=== PATIENT | male | born 1945 | race Caucasian/White ===

== ENCOUNTER 2020-10-28 12:19 | Outpatient (REF) | payer MEDICARE, OTHER, SELFPAY ==
[2020-10-28 15:58] LABS: Influenza A PCR NEGATIVE (Negative); Influenza B PCR NEGATIVE (Negative); Resp Syncy Virus RNA Qual PCR NEGATIVE (Negative); SARS COV2 PCR INHOUSE NEGATIVE (Negative)
== END 2020-10-28 12:20 | disposition home or self-care (01) ==
LOC: HO.LAB 12:19
PROVIDERS: Visit Provider Nurse Practitioner Family
DX: R09.81 Nasal congestion (principal); Z20.822 Contact with and (suspected) exposure to COVID-19
CPT/HCPCS: 0241U; 36415

== ENCOUNTER 2021-01-29 06:33 | Emergency (ER) | payer MEDICARE, OTHER, SELFPAY ==
--- NOTE | ~2021-01-29 | CT_ITS ---
EXAMINATION: CT PELVIS WITH CONTRAST CLINICAL INFORMATION: Evaluate for abscess COMPARISON: None TECHNIQUE: Helical scanning was performed with submillimeter collimation through the pelvis with the use of oral contrast and during bolus intravenous injection of 85 mL of Omnipaque 350 intravenous contrast. Sagittal and coronal multiplanar 2-D reconstructions were obtained. This CT examination was performed using dose optimization techniques as appropriate, variously including the following: *Automated exposure control *Adjustment of mA and/or kV according to patient size (this includes techniques or standardized protocols for targeted exams where dose is matched to indication/reason for exam; i.e. extremities or head) *Use of iterative reconstruction technique DLP: 392 mGy-cm FINDINGS: There are bilateral renal cysts. The bladder is unremarkable. The prostate gland is slightly enlarged measuring 4.5 x 5.2 cm in AP and transverse dimension. There is diverticulosis of the colon. The visualized bowel is otherwise unremarkable. The visualized appendix is unremarkable. There is abnormal soft tissue extending from the right inferior rectum/anus to the right medial gluteal fold. This has a central low-attenuation and is multiloculated suggestive of abscess or fistula. This does not contain air. There is no oral contrast. This measures approximately 8 cm in length and 2 x 4 cm in transverse and AP dimension. There is some stranding of the surrounding fat and skin thickening of the right buttock. No ascites or adenopathy is seen. Vascular structures are unremarkable. Review at bone windows demonstrates degenerative changes of the spine. CT/CT pelvis w con IMPRESSION: Right inferior rectal/anal multiloculated fluid collection extending to the right medial gluteal fold suggestive of abscess or fistula. Diverticulosis of the colon. Bilateral renal cysts.
[2021-01-29 08:58] VITALS: BP 138/49; PULSE 71; RESP 16; TEMP 36.9; O2SAT 96; BMI 37.1
--- NOTE | 2021-01-29 11:08 | ED_ITS ---
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 Reports he seen his PCP yesterday and was started on doxycycline he reports he took 3 doses total and feels like it is worsening therefore he came here for further evaluation and treatment. He denies any fevers, chills, nausea/vomiting, abdominal pain, constipation, diarrhea, hematuria or dysuria or history of MRSA that he is aware of. MD complaint: abscess/boil Onset (ago): day(s) (4 days worse today) Tetanus up to date: unsure Location: buttocks (In the perineum) and genitals Severity: similar to previous episodes Quality: aching and constant Pain Consistency: constant Relieving factors: none Exacerbating factors: palpation Context: none Associated symptoms: denies other symptoms Treatments prior to arrival: other (Has taken 3 doses of doxycycline total since yesterday) Related Data Home Medications Medication Instructions Recorded Confirmed levothyroxine 125 mcg tablet 125 mcg PO DAILY 10/28/20 Previous Rx's Medication Instructions Recorded azithromycin 250 mg tablet See Rx Instructions PO .COMPLEX #6 10/28/20 tab acetaminophen [Tylenol Extra 1,000 mg PO QID PRN #14 tab 01/29/21 Strength] cephalexin 500 mg PO BID 10 Days #20 cap 01/29/21 Allergies Allergy/AdvReac Type Severity Reaction Status Date / Time Penicillins [PENICILLINS] Allergy Unknown UNKNOWN Unverified 07/04/20 14:50 tetanus and diphtheria Allergy Unknown UNKNOWN Unverified 07/04/20 14:50 toxoids [TETANUS AND DIPHTHERIA TOXOIDS] Review of Systems Review of Systems: Constitutional : No Fever, No Chills, Cardiovascular : No Chest Pain, No SOB Respiratory : No Dyspnea Gastrointestinal : No abdominal pain Musculoskeletal : No Joint Swelling Skin : positive skin abscess with surrounding erythema, No Foreign bodies, No r jake Neuro : No Weakness, No Numbness/tingling Psych : No SI/HI/thoughts of self injury Denies hx of MRSA, IV drug usage Yes all other systems are reviewed and are negative [facility] Past Medical History Attestation statement: The following information was validated with the patient. Medical History Thyroid cancer Social History Social History Smoked in Last 30 Days: No Use of substances other than those prescribed or required for medical reasons: No Advance Directives: Yes Advance Directives Information Provided: Yes Advance Directives on File: No Physical Exam Vital Signs: Vital Signs: Last Vital Signs Temp 98.4 F 01/29/21 12:47 Pulse 75 01/29/21 12:47 Resp 16 01/29/21 12:47 BP 146/65 H 01/29/21 12:47 Pulse Ox 96 01/29/21 12:47 Body Mass Index 37.1 vital signs have been reviewed as normal and appeared to be correct. Blood pressure normal. Heart rate normal. Respiration rate normal. Temperature normal. Oxygen saturation normal. Appearance: Alert. Oriented X3. No acute distress. Head: Normal external exam. Normocephalic. Atraumatic. Eyes: PERRLA. EOMI. Conjunctiva and sclera normal. Eyelids normal. ENT: Pharynx normal. Uvula midline. Moist mucous membranes. No trismus noted. No drooling noted. No muffled voice noted. Neck: Normal inspection. Neck supple. FROM. No adenopathy. Thyroid Normal. No meningeal signs. No neck mass noted. CVS: Normal heart rate and rhythm. Heart sound normal. No murmurs noted. Pulses normal throughout. Respiratory: No respiratory distress. Painless inspiration. Breath sounds normal. No wheezes/rales/rhonchi noted. Chest nontender. No accessory muscle usage noted or decreased air movement noted. Abdomen: Soft and nontender. Bowel sounds normal in all 4 quadrants. No distention noted. No organomegaly noted. No visible injury noted. : To the perineum area patient has moderate soft tissue swelling with erythema questioning fluctuance/abscess. No streaking noted. Back: No CVA tenderness. Full range of motion noted. Skin: Skin warm and dry. Normal skin color. Normal skin turgor. No rashes/lesions/lacerations noted. Extremities: No lower extremity edema. Extremities exhibit normal range of motion. Extremities nontender. Neuro: Oriented X 3. No motor deficit. No sensory deficit. Reflexes normal. Course Course Course Narrative: Patient with an elevated white blood cell count at 14,000 otherwise all other labs are within normal limits. CT scan of pelvis with IV contrast revealed Right inferior rectal/anal multiloculated fluid collection extending to the right medial gluteal fold suggestive of abscess or fistula. Diverticulosis of the colon. Bilateral renal cysts. - therefore I attempted an I and D and no purulent discharge was noted only small amount of bloody drainage. Patient tolerated procedure well no complications. Will add Keflex to his regimen instructions to return if new or worsening symptoms and to follow up with primary care provider. Patient understands agrees with this plan. MDM - Skin/Abscess/Foreign Bdy MDM Narrative Medical decision making narrative: 75-year-old male with a past medical history of thyroid cancer though and recurrent Ischiorectal abscess presenting to the ED with possible recurrence of Ischiorectal abscess. - Concern for recurrent Ischiorectal abscess vs cellulitis. Less concern and not c/w faby's gangrene. - Plan: Labs, CT scan of pelvis c IV contrast to evaluate for possible abscess and re-evaluate. Medical Records Attestation: I reviewed the patient's medical records. Lab Data Attestation: I reviewed the patient's lab results. Result diagrams: 01/29/21 11:33 01/29/21 11:33 Labs: Lab Results 01/29/21 01/29/21 01/29/21 Range/Units 11:33 11:33 11:33 WBC 14.5 H (4.8-10.8) X10*3/uL RBC 5.39 (4.60-5.80) X10*6/uL Hgb 15.0 (14.0-18.0) g/dl Hct 46.9 (42-52) % MCV 87.0 (80-98) fL MCH 27.8 (27.0-33.0) pg MCHC 32.0 (31.0-36.0) g/dl RDW 14.8 (11.0-16.0) % Plt Count 221 (160-400) X10*3/uL MPV 10.2 (9.4-12.4) fL Immature Gran % (Auto) 0.5 H (0.0-0.4) % Neut % (Auto) 83.1 H (45-73) % Lymph % (Auto) 8.5 L (20-40) % Corson % (Auto) 7.7 (2-11) % Eos % (Auto) 0.1 (0-4) % Baso % (Auto) 0.1 (0-2) % Lymph # (Auto) 1.2 (1.2-4.9) X10*3/uL Corson # (Auto) 1.1 (0.1-1.2) X10*3/uL Eos # (Auto) 0.0 (0.0-0.4) X10*3/uL Baso # (Auto) 0.0 (0.0-0.2) X10*3/uL Abs Immat Gran (auto) 0.07 H (0.00-0.03) X10*3/uL Absolute Neuts (auto) 12.1 H (2.0-8.3) X10*3/uL Absolute Nucleated RBC 0.000 (0.0-0.012) X10*3/uL Nucleated RBC % (auto) 0.0 (0.0-0.2) /100WBC PT 13.8 H (10.8-13.0) SEC INR 1.2 H (0.9-1.1) Sodium 140 (135-145) mmol/L Potassium 4.6 (3.3-5.1) mmol/L Chloride 105 (96-108) mmol/L Carbon Dioxide 24 (22-29) mmol/L Anion Gap 16 (12-20) BUN 16 (9-16) mg/dL Creatinine 1.08 (0.5-1.4) mg/dL Estim Creat Clear Calc 65.8 Estimated GFR > 60 Random Glucose 116 H (60-115) mg/dL Calcium 9.1 (8.4-10.2) mg/dL Total Bilirubin 0.8 (0.0-1.0) mg/dL AST 15 (5-37) U/L ALT 8 (0-40) U/L Alkaline Phosphatase 61 (39-117) U/L Total Protein 6.8 (6.5-8.0) g/dL Albumin 4.3 (3.5-5.0) g/dL Imaging Data CT scan of pelvis with IV contrast: Attestation: I personally reviewed and interpreted this imaging study as follows: Radiologist's impression: FINDINGS: There are bilateral renal cysts. The bladder is unremarkable. The prostate gland is slightly enlarged measuring 4.5 x 5.2 cm in AP and transverse dimension. There is diverticulosis of the colon. The visualized bowel is otherwise unremarkable. The visualized appendix is unremarkable. There is abnormal soft tissue extending from the right inferior rectum/anus to the right medial gluteal fold. This has a central low-attenuation and is multiloculated suggestive of abscess or fistula. This does not contain air. There is no oral contrast. This measures approximately 8 cm in length and 2 x 4 cm in transverse and AP dimension. There is some stranding of the surrounding fat and skin thickening of the right buttock. No ascites or adenopathy is seen. Vascular structures are unremarkable. Review at bone windows demonstrates degenerative changes of the spine. CT/CT pelvis w con IMPRESSION: Right inferior rectal/anal multiloculated fluid collection extending to the right medial gluteal fold suggestive of abscess or fistula. Diverticulosis of the colon. Bilateral renal cysts. Discharge Plan Discharge Clinical Impression: Cellulitis, Abscess of skin or subcutaneous tissue Patient Disposition: Home, Self-Care Instructions: Cellulitis (ED), Abscess (ED) Additional Instructions: Continue taking your already prescribed antibiotics and start this new antibiotic. If you developed any fevers or any chills or worsening symptoms he needs to return to the emergency department immediately. Follow up with her primary care provider otherwise. Prescriptions: New cephalexin 500 mg capsule 500 mg PO BID 10 Days Qty: 20 RF: 0 acetaminophen [Tylenol Extra Strength] 500 mg tablet 1,000 mg PO QID PRN (Reason: fever or pain) Qty: 14 RF: 0 No Action levothyroxine 125 mcg tablet 125 mcg PO DAILY RF: 0 azithromycin 250 mg tablet See Rx Instructions PO .COMPLEX Qty: 6 RF: 0 Referrals: Sudheer John MD [Primary Care Provider] - 2 days Print Language: Tajik
[2021-01-29 11:38] LABS: MANUAL DIFF FLAG NO
[2021-01-29 11:40] LABS: Basophils Percent Auto 0.1 % (0-2); Eosinophils Percent Auto 0.1 % (0-4); Hematocrit 46.9 % (42-52); Imm Gran Abs Auto 0.07 X10*3/uL (0.00-0.03); Imm Gran Pct Auto 0.5 % (0.0-0.4); Lymphocytes Absolute Auto 1.2 X10*3/uL (1.2-4.9); Lymphocytes Percent Auto 8.5 % (20-40); Mean Corpuscular Hemoglobin 27.8 pg (27.0-33.0); Mean Platelet Volume 10.2 fL (9.4-12.4); Monocytes Absolute Auto 1.1 X10*3/uL (0.1-1.2); Monocytes Percent Auto 7.7 % (2-11); Neutrophils Absolute Auto 12.1 X10*3/uL (2.0-8.3); Neutrophils Percent Auto 83.1 % (45-73); Platelet Count 221 X10*3/uL (160-400); Red Blood Count 5.39 X10*6/uL (4.60-5.80); Red Cell Distribution Width 14.8 % (11.0-16.0); White Blood Count 14.5 X10*3/uL (4.8-10.8)
[2021-01-29] MEDS: 0.9 % Sodium Chloride 1,000 ML 999 ML IVCONT (11:41)
[2021-01-29 11:46] LABS: INTERNATIONAL NORM RATIO 1.2 (0.9-1.1); Prothrombin Time 13.8 SEC (10.8-13.0)
[2021-01-29 12:15] LABS: Alanine Aminotransferase 8 U/L (0-40); Albumin Level 4.3 g/dL (3.5-5.0); Alkaline Phosphatase 61 U/L (39-117); Anion Gap 16 (12-20); Aspartate Amino Transferase 15 U/L (5-37); Bilirubin Total 0.8 mg/dL (0.0-1.0); Blood Urea Nitrogen 16 mg/dL (9-16); Calcium 9.1 mg/dL (8.4-10.2); Carbon Dioxide 24 mmol/L (22-29); Chloride 105 mmol/L (96-108); Creatinine Clr Calc Pharmacy 65.8; Estimated Glomerular Filt Rate > 60; Glucose Random 116 mg/dL (60-115); Potassium 4.6 mmol/L (3.3-5.1); Sodium 140 mmol/L (135-145); Total Protein 6.8 g/dL (6.5-8.0)
[2021-01-29] MEDS: iohexoL 350 MG/ML 100 ML INFUS..BTL 85 ML IV (12:34)
[2021-01-29 12:47] VITALS: BP 146/65; PULSE 75; RESP 16; TEMP 36.9; O2SAT 96
[2021-01-29] MEDS: Lidocaine HCl 1 % MPF 5 ML VIAL SUBCUT ×2 (13:43)
--- NOTE | 2021-01-29 13:46 | PC.NURSE ---
shawn najera at bedside to attempt i&d, unsuccessful, dr. tsai also attempted i&d again no pus obtained
== END 2021-01-29 14:07 | disposition home or self-care (01) ==
PROVIDERS: Physician Assistant Medical; Emergency Provider Emergency Medicine Emergency Medical Services; PCP Internal Medicine
DX: L03.315 Cellulitis of perineum (principal); L02.215 Cutaneous abscess of perineum; Q61.02 Congenital multiple renal cysts; K57.30 Diverticulosis of large intestine without perforation or abscess without bleeding
CPT/HCPCS: 10060; 36415; 72193; 80053; 85025; 85610; 96360; 99284; Q9967

== ENCOUNTER → 2022-03-23 10:35 | Outpatient (BNVA) | payer SELFPAY | PROVIDERS: PCP Internal Medicine; Visit Provider Internal Medicine | DX: Z02.79 Encounter for issue of other medical certificate (principal) ==

== ENCOUNTER 2023-12-07 12:53 | Outpatient (AMB) | payer MEDICARE, OTHER, SELFPAY ==
--- NOTE | 2023-12-07 13:06 | AM.OFFWIN_ITS ---
Intake Vital Signs 12/07/23 13:18 Height 5 ft 6 in Weight 234 lb BMI 37.8 BP 126/70 Blood Pressure Location Lt brachial Position Sitting Pulse 60 Pulse Source Pulse Oximeter Temp 97.5 F Temp Source Temporal Artery Scan Pulse Oximetry (%) 96 Oxygen Delivery Method Room Air Intake Visit Reasons: EP LT FT Nail/Toe black Intake Note: pt is here today for lft ft nail is black started 1 month ago Patient Tobacco Use Status: Never used Tobacco Allergies Penicillins [PENICILLINS] Allergy (Unknown, Verified 12/07/23 13:08) UNKNOWN tetanus and diphtheria toxoids [TETANUS AND DIPHTHERIA TOXOIDS] Allergy (Unknown, Verified 12/07/23 13:08) UNKNOWN Do you need a note to return to daycare/school/sports/work: No HPI HPI Comments History of Present Illness Details 78-year-old male presents today complain ing of abrasion erythema and a subungal hematoma of his 2nd toe of his right foot. The patient is diabetic. He is unaware of any injury or trauma to the area but does have a small abrasion on the anterior surface PFSH Medical History Thyroid cancer Social History Patient Tobacco Use Status: Never used Tobacco Review of Systems Skin/Breast Reports lesions Physical Exam Vital Signs: Last Vital Signs Temp 97.5 F 12/07/23 13:18 Pulse 60 12/07/23 13:18 BP 126/70 12/07/23 13:18 Pulse Ox 96 12/07/23 13:18 Oxygen Delivery Method Room Air 12/07/23 13:18 BMI result Body Mass Index 37.8 Skin General skin exam: erythema (Right 2nd toe) Lesions: lesion noted (Abrasion noted on the right 2nd toe) Assessment & Plan Assessment & Plan (1) Cellulitis, toe: Code(s): L03.039 - Cellulitis of unspecified toe Plan: The patient will take doxycycline for a week and then follow up with his PCP. I suggested he get his nails done be sure that nail on the 2nd toe is well trimmed Plan See plan Medications: New doxycycline hyclate 100 mg PO BID 14 caps 0RF 7 days Coding Level of Care Code Est Pt Level 3 (85461) Diagnoses Cellulitis, toe L03.039
[2023-12-07 13:18] VITALS: BP 126/70; PULSE 60; TEMP 36.4; O2SAT 96; BMI 37.8
== END 2023-12-07 15:09 | disposition home or self-care (01) ==
PROVIDERS: PCP Internal Medicine; Visit Provider Physician Assistant Medical
DX: L03.039 Cellulitis of unspecified toe (principal)
CPT/HCPCS: 99213

== ENCOUNTER 2024-03-27 07:15 | Day surgery (SDC) | payer MEDICARE, OTHER, SELFPAY ==
[2024-03-23 12:03] VITALS: BMI 36.7
[2024-03-27 07:24] VITALS: BMI 35.5
[2024-03-27 07:53] VITALS: BP 134/60; PULSE 58; RESP 16; TEMP 36.1; O2SAT 97
[2024-03-27] MEDS: Lactated Ringers 1,000 ML 80 ML IVCONT (07:56)
--- NOTE | 2024-03-27 08:46 | HO.ANESPROP2 ---
[facility] [place] Active Problems Active Problems: All Active Problems Cellulitis, toe (Acute) Ischiorectal abscess (Acute) Otitis media (Acute) Nasal congestion (Acute) Thyroid cancer (Acute) Past Medical History Medical History BPH (benign prostatic hyperplasia) HTN (hypertension) Thyroid cancer Family History Family history of problems with anesthesia: No Surgical History Surgical History H/O colonoscopy Hx of cataract extraction Hx of thyroidectomy History of Problems with Anesthesia: No Social History Social History Patient Tobacco Use Status: Never used Tobacco Use of substances other than those prescribed or required for medical reasons: No Are you DNR?: No Advance Directives: No Advance Directives Information Provided: Yes Meds Allergies Allergy/AdvReac Type Severity Reaction Status Date / Time Penicillins [PENICILLINS] Allergy Unknown UNKNOWN Verified 03/27/24 07:34 tetanus and diphtheria Allergy Unknown UNKNOWN Verified 03/27/24 07:34 toxoids [TETANUS AND DIPHTHERIA TOXOIDS] Active Medications: Current Medications Lactated Ringer's (Lr) 1,000 mls @ 80 mls/hr IVCONT .[id number] NEGRITA Last Admin: 03/27/24 07:56 Dose: 80 mls/hr Sodium Biphosphate/Sodium Phosphate (Sodium Phosphate,Ashley-Dibasic 133 Ml Enema) 133 ml AK ONCE PRN PRN Reason: Poor Colonoscopy Prep Results Home Medications ?Medication ?Instructions ?Recorded ?Confirmed ?Last Taken ?Type levothyroxine 125 mcg tablet 125 mcg PO DAILY 10/28/20 03/27/24 03/26/24 History lisinopril 20 1 tab PO DAILY 12/07/23 03/27/24 03/27/24 History mg-hydrochlorothiazide 25 mg tablet tamsulosin 0.4 mg capsule 0.4 mg PO BEDTIME 12/07/23 03/27/24 03/26/24 History Exam Height,Weight and Vital Signs: Height 5 ft 6 in Weight 99.79 kg Last Vital Signs Temp 96.9 F 03/27/24 07:53 Pulse 58 03/27/24 07:53 Resp 16 03/27/24 07:53 BP 134/60 03/27/24 07:53 Pulse Ox 97 03/27/24 07:53 O2 Del Method Room Air 03/27/24 07:53 Airway Mallampati Class: IV TM Dist: <=3cm Neck ROM: Full Loose/Missing/Broken Teeth: No Heart: rrr Lungs: cta Assessment and Plan Assessment Anesthesia Assessment: Anesthesia Plan Discussed and Chart Reviewed Final Anesthetic Review Family History of Problems with Anesthesia: No History of Problems with Anesthesia: No NPO: Yes ASA Class: III Final Preanesthetic Review: No Changes in Pt Med Stat, Meds/Allgs Chart Reviewed, Consent Obtained/Reviewed and Anes Risks/Benef Reviewed Patient Risk: Intermediate Procedure Risk: Intermediate Anesthetic Plan Anesthetic Plan: TIVA Disposition: Standard PACU
[2024-03-27 09:46] VITALS: BP 113/79; PULSE 83; RESP 18; TEMP 36.1; O2SAT 97
--- NOTE | 2024-03-27 09:49 | P.BOP_ITS ---
Brief Operative Note Date of Service: 03/27/24 Pre-op diagnosis: Screening Post-op diagnosis: other (Polyp) Procedure: Colonoscopy to cecum and TI with bx/removal of polyp Surgeon: Reid Oh MD Anesthesia: MAC Was an Administrative Technician used for this Procedure?: No Estimated blood loss (mL): 2.0 Pathology: other (A. Polyp at 20cm) Condition: stable Disposition: PACU
[2024-03-27 10:01] VITALS: BP 121/63; PULSE 58; RESP 18; TEMP 37; O2SAT 98
--- NOTE | 2024-03-27 11:12 | HO.INF ---
PT NOT SEEN BY THIS RN. PATIENT LEFT WITHOUT RECEIVING DISCHARGE INSTRUCTIONS. THIS RN ATTEMPTED A PHONE CALL AND VOICE MSG. LEFT.
--- NOTE | 2024-03-27 11:31 | OP_ITS ---
DATE OF SERVICE: 03/27/2024 SURGEON: Reid Oh MD INDICATIONS: The patient presents for evaluation of colorectal cancer screening. Full consent has been obtained from him for this, including risks of bleeding and perforation. PREOPERATIVE DIAGNOSIS: Colorectal cancer screening. POSTOPERATIVE DIAGNOSIS: PROCEDURE PERFORMED: Colonoscopy to the cecum and terminal ileum with biopsy and removal of polyp. ESTIMATED BLOOD LOSS: COMPLICATIONS: ANESTHESIA: Monitored anesthesia care. ASSISTANTS: SPECIMENS: POSTOPERATIVE DIAGNOSES: Colorectal cancer screening, small colon polyp, diverticulosis, and internal hemorrhoids. DESCRIPTION OF PROCEDURE: The patient was placed in the left lateral decubitus position. The digital rectal exam revealed no abnormalities. The Olympus video pediatric colonoscope was then entered into the rectum and advanced easily to the cecum. Once in the cecum, I did identify normal-appearing cecal pouch with appendiceal orifice and a normal-appearing ileocecal valve. The terminal ileum was cannulated and appeared normal. Scope was withdrawn back in the colon. The entire cecum and ileocecal valve appeared normal. The scope was then slowly withdrawn assessing all mucosal surfaces carefully. Preparation was excellent. At 20 cm, was a flat, approximately 4 mm polyp, which was biopsied and completely removed with the cold biopsy forceps. I did not visualize any other polyps, colitis, nor angiodysplasias. There was a moderate amount of sigmoid diverticulosis. In the rectum, scope was retroflexed, visualizing internal hemorrhoids, but no other pathology. The rectal mucosa appeared normal. The scope was straightened and withdrawn from the patient. He tolerated the procedure well and was returned to the recovery area in stable condition. IMPRESSION: 1. Small colon polyp. 2. Diverticulosis. 3. Internal hemorrhoids. PLAN: The results of the biopsies will be checked. Given this minimal findings and his age, I do not think he would need any further screening colonoscopies in the future. He will, otherwise, see me on a p.r.n. basis. This has been discussed with his . MD RIGOBERTO Gavin/CHANDLER / [id number]
--- NOTE | 2024-03-27 12:10 | HO.INF ---
THIS RN CALLED PATIENT AGAIN AND SPOKE WITH HIM. THIS RN GAVE PATIENT DISCHARGE INSTRUCTIONS AND PATIENT STATED UNDERSTANDING. DC PAPERS BEING MAILED OUT TO PATIENT.
== END 2024-03-27 11:14 | disposition home or self-care (01) ==
PROVIDERS: PCP Internal Medicine; Visit Provider Internal Medicine
PROC: 0DJD8ZZ Inspection of Lower Intestinal Tract, Via Natural or Artificial Opening Endoscopic (ICD-10-PCS; CPT 45378; principal; 2024-03-27 08:40)
DX: Z12.11 Encounter for screening for malignant neoplasm of colon (principal); K63.5 Polyp of colon; K57.30 Diverticulosis of large intestine without perforation or abscess without bleeding; K64.8 Other hemorrhoids; I10 Essential (primary) hypertension; Z79.899 Other long term (current) drug therapy
CPT/HCPCS: 45380; 88305; J2704

== ENCOUNTER 2024-10-23 12:25 | Outpatient (AMB) | payer MEDICARE, OTHER, SELFPAY ==
[2024-10-23 12:30] VITALS: BP 122/66; PULSE 56; O2SAT 96; BMI 36.3
--- NOTE | 2024-10-23 12:30 | MHC.PC.OV ---
Vital Signs 10/23/24 12:30 Height 5 ft 6 in Weight 225 lb BMI 36.3 BP 122/66 Blood Pressure Location Lt brachial Position Sitting Pulse 56 Pulse Source Pulse Oximeter Pulse Oximetry (%) 96 Oxygen Delivery Method Room Air Intake Visit Reasons: CIRCUIT COURT MAGISTRATE Est Care BP, thyroid Intake Note: Pt is here today for New patient visit. Allergies Penicillins [PENICILLINS] Allergy (Unknown, Verified 10/23/24 13:24) UNKNOWN tetanus and diphtheria toxoids [TETANUS AND DIPHTHERIA TOXOIDS] Allergy (Unknown, Verified 10/23/24 13:24) UNKNOWN Medication List - Last Reconciled 10/23/24 by Sudheer Delaney [facility] levothyroxine 125 mcg PO DAILY lisinopril-hydrochlorothiazide 20-25 mg 1 tab PO DAILY tamsulosin 0.4 mg PO BEDTIME Tobacco use date assessed: 10/23/24 Fall risk assessment: No Falls in past year Last assessed Fall Risk: 10/23/24 Dental Screening Dental Screen Date: 10/23/24 Did you have a dental visit in the last 12 months?: No Did you have a dental problem in the last 6 months where you did not have access to dental care?: No Was dental information given to patient?: Patient declined HPI CIRCUIT [facility] MAGISTRATE Est Care BP, thyroid HPI Details Chief Complaint The patient presents for the management of hypothyroidism with stable blood pressure. History of Present Illness The patient is an 79-year-old male presenting with concerns related to chronic hypothyroidism. He is actively managing this condition with levothyroxine, which he takes regularly. There have been no recent changes in his hypothyroid symptoms reported. The patient also has a history of essential hypertension, for which he takes medication, and his blood pressure is currently reported as stable. The patient additionally reports difficulties with insomnia, which remains an ongoing issue. He has not attempted medicinal interventions for insomnia to date. The patient has not been under the care of any specialists and expresses a general dislike towards doctors. There is no mention of previous hospitalizations or critical events related to these existing conditions. Social History - Patient lives with his spouse. - No specifics about employment or housing have been discussed. 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 Health Maintenance - Recommended trial of melatonin for insomnia. Review of Systems - General: Reports insomnia. - Cardiovascular: Denies edema. - Respiratory: Reports clear lungs by self-assessment. - Auditory: Reports usage of hearing aids. - Gastrointestinal: Denies abdominal tenderness. Physical Exam General: Cooperative, healthy appearing, comfortable, no acute distress and well developed, obese Orientation: Patient oriented x3 Limitations: No limitations Head: Normal to inspection Ears: Hearing grossly normal bilaterally, does wear hearing aids Nose: Normal external nose present Face and sinus: Normal facial exam Eyes: Appearance normal, both eyes and all related structures Neck: Normal visual inspection and Yes full ROM Respiratory: Normal respiratory effort and able to speak in complete sentences. Clear to auscultation bilaterally Cardiovascular: Regular rate and rhythm. Normal S1 and S2 GI: Normal to inspection. Soft to palpation and nontender Skin: No rashes or lesions noted Neuro: Patient oriented x3 Extremities: Normal to inspection, no edema Results Plan - Continue current management with levothyroxine for hypothyroidism. - Maintain blood pressure medication regimen due to stable essential hypertension. - Initiate ltzr-oii-pjjcyks melatonin to address insomnia. - Encourage weight management strategies due to morbid obesity. Patient was informed and verbally consented to the use of an ambient scribe for clinic note documentation during this visit. Discussion Notes I reviewed the patient's hypothyroidism and hypertension management with him, emphasizing the stability of his current treatment regimens. We discussed an approach to his insomnia, deciding on trying melatonin initially. His health risks related to morbid obesity were noted, but we did not delve into a management strategy during this visit. The patient expressed discontent with medical interventions; however, I provided reassurance and options for his care. Follow-up care was not explicitly outlined in this conversation, but continued monitoring of his conditions is implied. Patient Instructions - Continue taking levothyroxine and blood pressure medications as prescribed. - Try melatonin for insomnia as an xaid-teu-ybyldyk supplement. - Monitor any changes in symptoms or health status. - Report any significant changes or concerns regarding his conditions. [facility] Medical History (Updated 10/23/24 @ 12:51 by BRAEDEN Ocampo) BPH (benign prostatic hyperplasia) HTN (hypertension) Thyroid cancer Surgical History H/O colonoscopy Hx of cataract extraction Hx of thyroidectomy Family History (Updated 10/23/24 @ 12:36 by IBAN Ma) Father No problems noted. Mother No problems noted. Social History Housing: House Patient Tobacco Use Status: Never used Tobacco e-Cigarette/Vaping Use: Never Used service: No Current occupational status: retired Cognitive needs: No Hearing needs: Yes Vision needs: No Questionnaire PHQ-9 Over the last 2 weeks, how often have you been bothered by any of the following problems? 1. Little interest or pleasure in doing things: not at all 2. Feeling down, depressed, or hopeless: not at all 3. Trouble falling or staying asleep, or sleeping too much: several days 4. Feeling tired or having little energy: several days 5. Poor appetite or overeating: not at all 6. Feeling bad about yourself - or that you are a failure or have let yourself or your family down: not at all 7. Trouble concentrating on things, such as reading the newspaper or watching television: not at all 8. Moving or speaking so slowly that other people could have noticed. Or the opposite - being so fidgety or restless that you have been moving around a lot more than usual: not at all 9. Thoughts that you would be better off or of hurting yourself in some way: not at all Total score: 2 Depression Screening Interpretation: Negative Depression Screening Done: Yes 77260 - PHQ-9 Billing: Yes Source: Developed by Drs. Reid Saeed, Taylor Marquis, Marek Pagan and colleagues, with an educational nidhi from [employer]. Thrive Questionnaire Date Thrive assessed: 10/23/24 I am a: Patient What is your living situation today?: I have a steady place to live Within the past 12 months, did the food you bought not last and you didn't have the money to get more?: Never true Within the past 12 months, did you worry whether your food would run out before you got money to buy more?: Never true Do you have trouble paying for medicines?: No Do you have trouble getting transportation to medical appointments?: No Do you have trouble paying your heating and electricity bill?: No Do you have trouble taking care of your child, family member or friend?: No Do you have trouble with day-to-day activities such as bathing, preparing meals, shopping, managing finances, etc.?: No Are you currently unemployed and looking for a job?: No Are you interested in more education?: No Please select the resources that you would like help with: None Currently or been in a relationship where the following occur: No concerns reported THRIVE Score: 0 AUDIT C Alcohol Use Questionnaire (AUDIT-C) 1. How often do you have a drink containing alcohol?: 2-4 times a month 2. How many drinks containing alcohol do you have on a typical day when you are drinking?: 1 or 2 3. How often do you have six or more drinks on one occasion?: Never Total Score: 2 WYATT-7 AMB Questionnaire WYATT-7 Date WYATT - 7 assessed: 10/23/24 Feeling nervous, anxious, or on edge: 0 = Not at all Not being able to stop or control worryin = Not at all Worrying too much about different things: 0 = Not at all Trouble relaxin = Not at all Being so restless that it is hard to sit still: 0 = Not at all Becoming easily annoyed or irritable: 0 = Not at all Feeling afraid as if something awful might happen: 0 = Not at all Total WYATT-7 score (0-4 normal; 5-9 mild; 10-14 moderate; 15-21 severe): 0 Source: Developed by Drs. Reid Saeed, Taylor Marquis, Marek Pagan and colleagues, with an educational nidhi from [employer]. WYATT-7 Assessment Billing WYATT-7 Assessment Tool: WYATT-7 Assessment 78491 Physical exam (Primary Care) Vital Signs: Last Vital Signs Pulse 56 10/23/24 12:30 BP 122/66 10/23/24 12:30 Pulse Ox 96 10/23/24 12:30 Oxygen Delivery Method Room Air 10/23/24 12:30 BMI result Body Mass Index 36.3 Tobacco/Smoking Status: Tobacco use Status Tobacco use date assessed 10/23/24 10/23/24 12:38 Patient Tobacco Use Status Never used Tobacco 10/23/24 12:38 e-Cigarette/Vaping Use Never Used 10/23/24 12:38 PHQ-9: PHQ-9 Score PHQ-9: Total score 2 10/23/24 12:38 Depression Screening Interpretation: Negative Thrive Assessment: Date of Thrive Assessment Date Thrive assessed 10/23/24 10/23/24 12:38 Currently or been in a relationship where the following occur: No concerns reported Coding Level of Care Code New Pt Level 3 (75251) Diagnoses HTN (hypertension) I10 BPH (benign prostatic hyperplasia) N40.0 Additional Codes WYATT-7 Assessment Billing - WYATT-7 Assessment Tool: WYATT-7 Assessment 42246 ([id number]) PHQ-9 - 15008 - PHQ-9 Billing: Yes ([id number]) Assessment & Plan Assessment & Plan (1) HTN (hypertension): Code(s): I10 - Essential (primary) hypertension Category: Medical (2) BPH (benign prostatic hyperplasia): Code(s): N40.0 - Benign prostatic hyperplasia without lower urinary tract symptoms Category: Medical Plan . Orders: Orders Comprehensive [place]. Panel Fast Today I10 - Essential (primary) hypertension UA CC w/rflx Micro + Cult Today I10 - Essential (primary) hypertension Lipid Panel Today I10 - Essential (primary) hypertension Prostate Specific Antigen Scr Today N40.0 - Benign prostatic hyperplasia without lower urinary tract symptoms Complete Blood Count Auto Diff Today I10 - Essential (primary) hypertension TSH reflex Free T4 Today I10 - Essential (primary) hypertension
== END 2024-10-23 13:21 | disposition home or self-care (01) ==
PROVIDERS: PCP Internal Medicine; Visit Provider Nurse Practitioner Family
DX: I10 Essential (primary) hypertension (principal); N40.0 Benign prostatic hyperplasia without lower urinary tract symptoms

== ENCOUNTER → 2024-10-23 12:25 | Outpatient (BNVA) | payer MEDICARE, OTHER, SELFPAY | PROVIDERS: PCP Internal Medicine; Visit Provider Nurse Practitioner Family | DX: I10 Essential (primary) hypertension (principal); N40.0 Benign prostatic hyperplasia without lower urinary tract symptoms | CPT/HCPCS: 96127; 99202 ==

== ENCOUNTER 2024-10-24 07:23 | Outpatient (REF) | payer MEDICARE, OTHER, SELFPAY ==
[2024-10-24 09:56] LABS: MANUAL DIFF FLAG NO
[2024-10-24 09:57] LABS: Appearance Urine Clear; Color Urine Yellow; Glucose Urine UA Negative (Negative); Leukocyte Esterase Urine Negative (Negative); Nitrite Urine Negative (Negative); Urine Blood Negative (Negative); Urine Ketones Negative (Negative); Urine Protein Negative (Neg-Trace)
[2024-10-24 10:03] LABS: Basophils Percent Auto 0.6 % (0-2); Eosinophils Absolute Auto 0.1 X10*3/uL (0.0-0.4); Eosinophils Percent Auto 1.9 % (0-4); Hematocrit 42.9 % (42.0-52.0); Hemoglobin 14.1 g/dl (14.0-18.0); Imm Gran Abs Auto 0.04 X10*3/uL (0.00-0.03); Imm Gran Pct Auto 0.6 % (0.0-0.4); Mean Corpuscular HGB Conc 32.9 g/dl (31.0-36.0); Mean Corpuscular Hemoglobin 28.4 pg (27.0-33.0); Mean Corpuscular Volume 86.5 fL (80.0-98.0); Mean Platelet Volume 10.4 fL (9.4-12.4); Monocytes Absolute Auto 0.6 X10*3/uL (0.1-1.2); Neutrophils Absolute Auto 3.9 x10*3/uL (2.0-8.3); Neutrophils Percent Auto 57.9 % (45-73); Platelet Count 198 X10*3/uL (160-400); Red Blood Count 4.96 X10*6/uL (4.60-5.80); Red Cell Distribution Width 13.7 % (11.0-16.0); White Blood Count 6.7 X10*3/uL (4.8-10.8)
[2024-10-24 10:42] LABS: Alanine Aminotransferase 10 U/L (0-40); Albumin Level 4.1 g/dL (3.5-5.0); Alkaline Phosphatase 46 U/L (39-117); Anion Gap 10 (12-20); Aspartate Amino Transferase 16 U/L (5-37); Bilirubin Total 0.5 mg/dL (0.0-1.0); Blood Urea Nitrogen 25 mg/dL (9-16); Calcium 8.9 mg/dL (8.4-10.2); Carbon Dioxide 29 mmol/L (22-29); Chloride 106 mmol/L (96-108); Cholesterol 184 mg/dL (<200); Estimated Glomerular Filt Rate 49; Glucose Fasting 104 mg/dL (60-99); HDL Cholesterol 36 mg/dL (>40); LDL Cholesterol Calculated 114 mg/dL (<100); Potassium 4.4 mmol/L (3.3-5.1); Sodium 141 mmol/L (135-145); Total Protein 6.4 g/dL (6.5-8.0); Triglycerides 174 mg/dL (<150)
[2024-10-24 10:48] LABS: Prostate Specific Antigen Scr 9.97 ng/mL (<0.05-4.0)
== END 2024-10-24 07:24 | disposition home or self-care (01) ==
LOC: HO.HMGCLDS 07:23
PROVIDERS: PCP Nurse Practitioner Family; Visit Provider Nurse Practitioner Family
DX: I10 Essential (primary) hypertension (principal); N40.0 Benign prostatic hyperplasia without lower urinary tract symptoms; Z12.5 Encounter for screening for malignant neoplasm of prostate
CPT/HCPCS: 36415; 80053; 80061; 81003; 84153; 84443; 85025

== ENCOUNTER 2024-11-18 23:12 | Emergency (ER) | payer MEDICARE, OTHER, SELFPAY ==
[2024-11-18 23:18] VITALS: BP 133/55; PULSE 60; O2SAT 99
[2024-11-18 23:22] VITALS: BP 130/60; PULSE 55; RESP 18; TEMP 36; O2SAT 94; BMI 36.8
--- NOTE | 2024-11-18 23:33 | PC.NURSE ---
Pt a&ox4, no signs of distress Pt hard of hearing Pt reports 10/10 right sided neck and shoulder pain with onset x1day after waking up. Plan of care ongoing.
--- NOTE | 2024-11-19 03:19 | ED.GENADULT ---
HPI - General Adult General Chief complaint: General Medical Stated complaint: r shoulder and neck pain, after sleeping Time Seen by Provider: 11/19/24 03:17 Source: patient and family Mode of arrival: ambulatory Limitations: no limitations History of Present Illness ED Provider: Dr. Navarro Goss HPI narrative: 79-year-old male with a history of hypertension, thyroid cancer, BPH who presents emergency department for evaluation of severe right-sided neck pain x2 days. Patient states that 2 days prior he slept in his recliner. States that he woke up at 02:00 and went to bed and then at 04:00 he developed severe pain in the right side of his neck and right shoulder. He states that he used a heating pad all day yesterday with no improvement of his pain. He states that the pain that became very severe the point where he is having difficulty moving his head. States that he can turn his head to the left but whenever he turns his head to the right his severe pain and spasm of the neck muscles. The patient states that he was concerned that he might have a blood clot in his neck therefore he came to the emergency department for evaluation. Patient states that he had no headache but after waiting proximally 3 hours in the emergency department he states that he now has a very mild headache. He denied fever, chills, rhinorrhea, sore throat, cough, chest pain, shortness of breath, nausea, or vomiting. Related Data Home Medications ?Medication ?Instructions ?Recorded ?Confirmed levothyroxine 125 mcg tablet 125 mcg PO DAILY 10/28/20 10/23/24 lisinopril 20 1 tab PO DAILY 12/07/23 10/23/24 mg-hydrochlorothiazide 25 mg tablet tamsulosin 0.4 mg capsule 0.4 mg PO BEDTIME 12/07/23 10/23/24 Previous Rx's ?Medication ?Instructions ?Recorded cyclobenzaprine 5 mg tablet 5 mg PO BEDTIME PRN muscle spasm 11/19/24 #10 tabs Allergies Allergy/AdvReac Type Severity Reaction Status Date / Time Penicillins [PENICILLINS] Allergy Unknown UNKNOWN Verified 11/18/24 23:31 tetanus and diphtheria Allergy Unknown UNKNOWN Verified 11/18/24 23:31 toxoids [TETANUS AND DIPHTHERIA TOXOIDS] [facility] Past Medical History Medical History (Updated 11/19/24 @ 05:47 by Navarro Goss MD) BPH (benign prostatic hyperplasia) HTN (hypertension) Thyroid cancer Surgical History H/O colonoscopy Hx of cataract extraction Hx of thyroidectomy Family History Family History (Updated 10/23/24 @ 12:36 by IBAN Ma) Father No problems noted. Mother No problems noted. Social History Social History Housing: House Patient Tobacco Use Status: Never used Tobacco Smoked in Last 30 Days: No e-Cigarette/Vaping Use: Never Used Use of substances other than those prescribed or required for medical reasons: No Advance Directives: No service: No Current occupational status: retired Cognitive needs: No Hearing needs: Yes Vision needs: No Physical Exam ED Vital Signs: Vital Signs - 24 hr 11/18/24 23:22 11/19/24 05:27 Temperature 96.8 F Pulse Rate 55 Respiratory Rate 18 14 Blood Pressure 130/60 Pulse Oximetry 94 Oxygen Delivery Method Room Air BMI result Body Mass Index 36.8 Vital signs were no Exam: General: Awake, alert in no distress Head: Normocephalic, atraumatic EENT: PERRL, Lids normal, sclera normal, conjunctiva normal, nose normal , ears normal, throat without erythema or exudates Neck: Patient has tenderness and spasm of the right trapezius muscle, he was pain with movement of his head to the right, moving his ear to his right shoulder and moving his chin to his chest. Lung: breath sounds symmetric, no wheezing, rales or rhonchi Chest: symmetric movement, nontender Heart: regular rate and rhythm, normal S1, S2 no murmurs or rubs Neuro: Awake, alert, oriented, normal speech, moves all extremities symmetrically Psych: Pleasant, cooperative Medications Administered Discontinued Medications Generic Name Dose Route Start Last Admin Trade Name Freq PRN Reason Stop Dose Admin Cyclobenzaprine HCl 5 mg 11/19/24 05:06 11/19/24 05:28 Cyclobenzaprine Hcl 5 Mg Tablet PO 11/19/24 05:07 5 mg ONCE ONE Administration Ketorolac Tromethamine 30 mg 11/19/24 03:35 11/19/24 03:47 Ketorolac Tromethamine 15 Mg/Ml Vial IVPUSH 11/19/24 03:36 30 mg ONCE STA Administration Morphine Sulfate 2 mg 11/19/24 05:06 11/19/24 05:27 Morphine Sulfate 2 Mg/Ml Cartridge IVPUSH 11/19/24 05:07 2 mg ONCE ONE Administration Protocol Medical Decision Making Medical Decision Making MDM Narrative: 79-year-old male with a history of hypertension, thyroid cancer, BPH who presents emergency department for evaluation of severe right-sided neck pain x2 days. Patient was pain came on gradually, is exacerbated by moving his head to the right, vital signs were normal, exam revealed significant tenderness and spasm of the right trapezius muscle with limited range of motion of his neck. Differential diagnosis: ?Includes but is not limited to cervical sprain, trapezius muscle strain, trapezius muscle spasm, torticollis Course: 03:47 Patient's physical examination is consistent with significant spasm of the trapezius muscle/torticollis. IV was established by the nurse and the patient was treated with Toradol 30 mg IV. 05:44 The patient got minimal relief with the above treatment. He was given morphine 2 mg IV and Flexeril 5 mg IV. Ice was also applied to his trapezius muscle. Patient states that he was feeling better, he was able to move his neck more with less pain. I did discuss trapezius muscle spasm/injury with the patient and the patient's family. Patient was advised to take ibuprofen 400 mg 3 times a day for the next 4 days and then as needed, he was also advised to take extra-strength Tylenol 2 pills 3 times a day as well. Patient was given a prescription for Flexeril 5 mg to take at night for spasm and sleep. He was given printed and verbal instructions and discharged home. Admission/Observation Consideration of admission/observation: Escalation of care including admission/observation considered Independent Historian Clinical information obtained from an independent historian. History obtained from or confirmed by: Spouse and Other (Son) Prescription Management I considered prescription management with: Other (Anti spasmodic: Flexeril) Chronic Conditions Patient?s care impacted by: Hypertension Discharge Plan Discharge Clinical Impression: Spasm of right trapezius muscle, Acute torticollis Patient Disposition: Home, Self-Care Additional Instructions: Take ibuprofen 200 mg pills, 2 pills every 6 hours as needed for pain. 2 hours after you take ibuprofen, if you are still having pain, take Tylenol (acetaminophen) 500 mg pills, 2 pills every 6 hours as needed for pain. Take Flexeril (cyclobenzaprine) 5 mg pills, 1 pill every at night as needed for pain or spasm. ?This medication will make you sleepy. ?Do not drive or work while taking this medication. Apply ice for 15 minutes to the trapezius muscle of the right side of your neck. Do this 4 to 6 times a day for the next 2 days to help reduce the inflammation and spasm of this muscle. Follow-up with your doctor in 2 days. Please return to the emergency department if your symptoms get worse or if you develop any symptoms that are concerning to you. Prescriptions: New cyclobenzaprine 5 mg tablet 5 mg PO BEDTIME PRN (Reason: muscle spasm) Qty: 10 0RF No Action levothyroxine 125 mcg tablet 125 mcg PO DAILY lisinopril-hydrochlorothiazide 20-25 mg tablet 1 tab PO DAILY tamsulosin 0.4 mg capsule 0.4 mg PO BEDTIME Print Language: Slovak
[2024-11-19] MEDS: Ketorolac Tromethamine 15 MG/ML VIAL 30 MG IVPUSH (03:47)
--- NOTE | 2024-11-19 03:49 | PC.NURSE ---
Pt medicated per [facility] Plan of care ongoing.
[2024-11-19 05:27] VITALS: RESP 14
[2024-11-19] MEDS: Morphine Sulfate 2 MG/ML CARTRIDGE IVPUSH (05:27)
[2024-11-19] MEDS: Cyclobenzaprine HCl 5 MG TABLET PO (05:28)
--- NOTE | 2024-11-19 05:32 | PC.NURSE ---
Pt medicated per [facility] Plan of care ongoing.
[2024-11-19 05:59] VITALS: BP 144/86; PULSE 78; RESP 18; TEMP 36.8; O2SAT 96
== END 2024-11-19 06:01 | disposition home or self-care (01) ==
PROVIDERS: Emergency Provider Emergency Medicine Emergency Medical Services; PCP Nurse Practitioner Family
DX: M43.6 Torticollis (principal); M62.838 Other muscle spasm; M54.2 Cervicalgia; M25.511 Pain in right shoulder; Z79.899 Other long term (current) drug therapy
CPT/HCPCS: 96374; 96375; 99284; J1885; J2270

== ENCOUNTER → 2024-11-22 10:00 | Outpatient (BNVA) | payer MEDICARE, OTHER, SELFPAY | PROVIDERS: PCP Nurse Practitioner Family; Visit Provider Urology | DX: R97.20 Elevated prostate specific antigen [PSA] (principal); R39.12 Poor urinary stream; N40.1 Benign prostatic hyperplasia with lower urinary tract symptoms; N13.8 Other obstructive and reflux uropathy; R33.8 Other retention of urine | CPT/HCPCS: 51798; 81003; 99202 ==

== ENCOUNTER 2024-12-06 08:00 | Outpatient (AMB) | payer MEDICARE, OTHER, SELFPAY ==
--- NOTE | 2024-12-06 08:06 | A.OFFPC_ITS ---
Vital Signs 12/06/24 08:07 Height 5 ft 6 in Weight 224 lb BMI 36.2 BP 130/70 Blood Pressure Location Lt brachial Position Sitting Respiration 18 Pulse 70 Pulse Source Pulse Oximeter Temp 98.0 F Temp Source Oral Pulse Oximetry (%) 97 Intake Visit Reasons: ED F/U Allergies Penicillins [PENICILLINS] Allergy (Unknown, Verified 12/06/24 08:43) UNKNOWN tetanus and diphtheria toxoids [TETANUS AND DIPHTHERIA TOXOIDS] Allergy (Unknown, Verified 12/06/24 08:43) UNKNOWN Medication List - Last Reconciled 12/06/24 by ESTELITA Ocampo- dexamethasone 4 mg PO DAILY 9 days finasteride 5 mg PO DAILY 90 days levothyroxine 125 mcg PO DAILY lisinopril-hydrochlorothiazide 20-25 mg 1 tab PO DAILY tamsulosin 0.4 mg PO BEDTIME Tobacco use date assessed: 10/23/24 Fall risk assessment: No Falls in past year Last assessed Fall Risk: 12/06/24 Dental Screening Dental Screen Date: 10/23/24 HPI ED F/U HPI Details Chief Complaint Severe right-sided neck pain for two days. History of Present Illness The patient is an 79-year-old male presenting with acute cervical neck pain and associated muscle spasm. The discomfort initiated two days ago, following an episode where the patient slept in a recliner. This led to significant difficulty in moving his head. Initially, he received Toradol 30 mg IV for pain management, with additional relief provided by morphine 2 mg IV and Flexeril 5 mg IV. Iso was applied to the affected area, yielding some improvement in symptomatology, allowing for increased mobility with reduced pain. Despite full resolution, the pain reoccurred in the right trapezius region following physical exertion involving snow shoveling amidst recent weather conditions. The patient denies radicular symptoms in the bilateral upper extremities but reports discomfort upon turning his head to the right. Previous intervention with dexamethasone was efficacious, prompting a similar therapeutic approach in this instance. He is currently taking hmce-rze-ilicxje ibuprofen 400 mg thrice daily. The patient's medical history also involves his dealings with urological concerns, necessitating regular follow-ups and medication refills for Flomax. Social History - Currently non-discussed social determi nants of health. Health Maintenance Review of Systems - Neurological: Denies radicular symptom s down bilateral upper extremities. - Musculoskeletal: Reports some discomfo rt in the right upper trapezius region with head movement to the right. Physical Exam General: Cooperative, healthy appearing, comfortable, no acute distress and well developed Orientation: Patient oriented x3 Limitations: No limitations Head: Normal to inspection Ears: Hearing grossly normal bilaterally Nose: Normal external nose present Face and sinus: Normal facial exam Eyes: Appearance normal, both eyes and all related structures Neck: Normal visual inspection and Yes full ROM, though there is some right up per trap discomfort with turning head to the right, slight discomfort noted with palpation in this region Respiratory: Normal respiratory effort and able to speak in complete sentences. Clear to auscultation bilaterally Cardiovascular: Regular rate and rhythm. Normal S1 and S2 GI: Normal to inspection. Soft to palpation and nontender Skin: No rashes or lesions noted Neuro: Patient oriented x3 Extremities: Normal to inspection, denies any radicular symptoms down his bilateral upper extremities Results Plan - Prescribe a dexamethasone taper due to its previous effectiveness for this condition. - Refill Flomax prescription as part of ongoing management for urological symptoms. - Continue current analgesic and muscle relaxer medication as prescribed, including Ibuprofen 400 mg three times daily and Flexeril 5 mg at night. Discussion Notes I discussed with the patient the likely musculoskeletal and cervical nature of his neck pain cluster. Utilizing dexamethasone demonstrated favorable results in past interventions; thus, a similar course is advised to achieve relief. I provided reassurance about the management plan, ensuring the patient was informed about medication usage, potential side effects, and the overall therapeutic outlook. Additional guidance concerning the use of ibuprofen and Flexeril to manage pain and muscle spasm was provided. Follow-up with urology is imperative to maintain management continuity in addressing lower urinary tract symptoms, with today's prescription refill to bridge until the next urology consult. Patient Instructions - Take ibuprofen 400 mg three times niyah y for pain management. - Continue taking Flexeril 5 mg at night for muscle spasm relief. - Follow tapering instructions for dexam ethasone as previously prescribed. - Attend the scheduled follow-up with ur ology and manage refilled Flomax as directed. - Monitor symptoms and contact if pain w orsens or new symptoms arise. [facility] Medical History BPH (benign prostatic hyperplasia) HTN (hypertension) Thyroid cancer Surgical History H/O colonoscopy Hx of cataract extraction Hx of thyroidectomy Family History Father No problems noted. Mother No problems noted. Social History Housing: House Patient Tobacco Use Status: Never used Tobacco e-Cigarette/Vaping Use: Never Used service: No Current occupational status: retired Cognitive needs: No Hearing needs: Yes Vision needs: No Questionnaire Thrive Questionnaire Date Thrive assessed: 10/23/24 I am a: Patient What is your living situation today?: I have a steady place to live Within the past 12 months, did the food you bought not last and you didn't have the money to get more?: Never true Within the past 12 months, did you worry whether your food would run out before you got money to buy more?: Never true Do you have trouble paying for medicines?: No Do you have trouble getting transportation to medical appointments?: No Do you have trouble paying your heating and electricity bill?: No Do you have trouble taking care of your child, family member or friend?: No Do you have trouble with day-to-day activities such as bathing, preparing meals, shopping, managing finances, etc.?: No Are you currently unemployed and looking for a job?: No Are you interested in more education?: No Please select the resources that you would like help with: None Currently or been in a relationship where the following occur: No concerns reported THRIVE Score: 0 WYATT-7 AMB Questionnaire WYATT-7 Date WYATT - 7 assessed: 10/23/24 Source: Developed by Drs. Reid Saeed, Taylor Marquis, Marek Pagan and colleagues, with an educational nidhi from [employer]. Physical exam (Primary Care) Vital Signs: Last Vital Signs Temp 98.0 F 12/06/24 08:07 Pulse 70 12/06/24 08:07 Resp 18 12/06/24 08:07 BP 130/70 12/06/24 08:07 Pulse Ox 97 12/06/24 08:07 BMI result Body Mass Index 36.2 Tobacco/Smoking Status: Tobacco use Status Tobacco use date assessed 10/23/24 12/06/24 08:10 Patient Tobacco Use Status Never used Tobacco 12/06/24 08:10 e-Cigarette/Vaping Use Never Used 12/06/24 08:10 Thrive Assessment: Date of Thrive Assessment Date Thrive assessed 10/23/24 12/06/24 08:10 Currently or been in a relationship where the following occur: No concerns reported Coding Level of Care Code Est Pt Level 3 (03797) Diagnoses Neck muscle spasm M62.838 Assessment & Plan Assessment & Plan (1) Neck muscle spasm: Code(s): M62.838 - Other muscle spasm Category: Medical Plan . Medications: New dexamethasone 1 tab three times a day for 3 days, 1 tab twice a day for 3 days, 1 tab daily for 3 days 4 mg PO DAILY 9 days 18 tabs 0RF Changed From tamsulosin 0.4 mg PO BEDTIME To tamsulosin 0.4 mg PO BEDTIME 90 days 90 caps 0RF
--- OUTSIDE RECORDS SUMMARY | 2024-12-06 08:06 | XMS_ITS ---
Author Organization [facility] Address [address] [place] [address] Care Team Providers Care Chief Telephone Operator Name Role Phone Sudheer John MD Primary Care Provider Unavailab Reid Hernandez Unavailable [phone] REASON FOR VISIT screening,constipation PROBLEMS Problem Type ICD Code Onset Dates Problem Status W/U Status Risk SNOMED Code Notes Problem Diverticulosis of large intestine without perforation or abscess without bleeding (K57.30) Active confirmed Diverticul ar disease of colon (878838820) Encounters Encounter Location Date Provider Diagnosis [facility] [address] [place], [place] [id number] 03/27/2024 Reid Oh Encounter for scre ening colonoscopy Z12.11 ; Colon polyps K63.5 ; Diverticulosis of large intestine without perforation or abscess without bleeding K57.30 and Other hemorrhoids K64.8 ASSESSMENTS Encounter Date Diagnosis Assessment Notes Treatment Notes Treatment Clinical Notes 03/27/2024 Encounter for screening colonoscopy (ICD-10 - Z12.11) 03/27/2024 Colon polyps (ICD-10 - K63.5) 03/27/2024 Diverticulosis of large intestine without perforation or abscess without bleeding (ICD-10 - K57.30) 03/27/2024 Other hemorrhoids (ICD-10 - K64.8) PLAN OF TREATMENT No Information
--- OUTSIDE RECORDS SUMMARY | 2024-12-06 08:06 | XMS_ITS ---
Author Organization [facility] Address [address] [place] [address] Care Team Providers Care Director Talent Acquisition Name Role Phone Sudheer John MD Primary Care Provider Reid Jiang Unavailable [phone] ALLERGIES Allergen (clinical drug ingredient) Drug/Non Drug Allergy documented on EMR Reaction Allergy Type Onset Date Status Tetanus Toxoids Unknown Drug Allergy A ctive Penicillin Unknown Drug Allergy Active REASON FOR VISIT Patient presents today for CONSTIPATION MEDICATIONS Medication SIG (Take, Route, Frequency, Duration) Notes Start Date End Date Status Tamsulosin HCl 0.4 MG TAKE 1 CAPSULE BY MOUTH EVERY DAY AT BEDTIME Oral for 90 Active Lisinopril-hydroCHLOROthiazi de 20-25 MG TAKE 1 TABLET BY MOUTH EVERY DAY Oral for 90 Active Levothyroxine Sodium 125 MCG TAKE 1 TABL ET BY MOUTH EVERY DAY Oral for 90 Active IMMUNIZATIONS Vaccine Route Administration Date Status Comme nts Influenza Unknown 12/24/2023 Refused SOCIAL HISTORY Tobacco Use: Social History Observation Description Date Details (start date - stop date) Never Smoker NA - NA Sex Assigned At : Social History Observation Description Sex Assigned At Unknown Tobacco Use/Smoking Question Answer Notes Patient is a nonsmoker Alcohol Screen Question Answer Notes Did you have a drink contain ing alcohol in the past year? Yes How often did you have a dri nk containing alcohol in the past year? 2 to 3 times a week (3 points) How many drinks did you have on a typical day when you were drinking in the past year? 1 or 2 drinks (0 point) How often did you have 6 or more drinks on one occasion in the past year? Never (0 point) Points 3 Interpretation Negative PROBLEMS Problem Type ICD Code Onset Dates Problem Status W/U Status Risk SNOMED Code Notes Problem Chronic constipation (K59.09) Active confirmed Chronic constipation (821110196) Problem Colon cancer screening (Z12.11) Active confirmed Colon cancer screening (130700163) VITAL SIGNS BMI 36.70 kg/m2 12/24/2023 Blood pressure systolic 000 mm Hg 12/24/19 24 Blood pressure diastolic 00 mm Hg 024 Height 5 ft 6 in in 12/24/2023 Temperature 96.9 degrees Fahrenheit 12/24/19 24 Weight 227 lb 6 oz lbs 12/24/2023 Encounters Encounter Location Date Provider Diagnosis [facility] [address] [place] [address] 12/24/2023 Reid Oh Chronic constipation K59.09 and Colon cancer screening Z12.11 ASSESSMENTS Encounter Date Diagnosis Assessment Notes Treatment Notes Treatment Clinical Notes 12/24/2023 Chronic constipation (ICD-10 - K59.09) Continue the Colace and Prune Juice daily 12/24/2023 Colon cancer screening (ICD-10 - Z12.11) PLAN OF TREATMENT Treatment Notes Assessment Notes Chronic constipation Continue the Colace and Prune Juice daily Future Test Test Name Order Date COLONOSCOPY 12/24/2023 Next Appt Details Follow Up: prn, Reason: Progress Notes * Examination Category Sub-Category Detail Notes General Examination GENERAL APPEARANCE: pleasant , well nourished, well developed, in no acute distress HEAD: EYES: sclera non-icteric EARS: NOSE: THROAT: NECK/THYROID: no cervical lymphade nopathy, neck supple HEART: S1, S2 normal CHEST: LUNGS: clear to auscultatio n bilaterally ABDOMEN: normal bowel sounds, no guarding or rigidity, no guarding or rigidity, no masses palpable, soft, nontender, nondistended NEUROLOGIC: alert and oriented SKIN: nonjaundiced, no spi sabine angiomata EXTREMITIES: no edema PERIPHERAL PULSES: BACK: BREASTS: MUSCULOSKELETAL: MALE GENITOURINARY: LYMPH NODES: RECTAL EXAM: FEMALE GENITOURINARY: ORAL CAVITY: mucosa moist
--- OUTSIDE RECORDS SUMMARY | 2024-12-06 08:06 | XMS_ITS | Patient Health Record ---
Author Organization [facility] Address [address] [place] [address] Care Team Providers Care Denitrator Name Role Phone Sudheer John MD Primary Care Provider UnavailReid Colin [phone] ALLERGIES Allergen (clinical drug ingredient) Drug/Non Drug Allergy documented on EMR Reaction Allergy Type Onset Date Status Tetanus Toxoids Unknown Drug Allergy A ctive Penicillin Unknown Drug Allergy Active RESULTS Component Value Reference Range Notes Pathology (Not yet reviewed by provider) Interpretation: Performing Lab:[facility], [address] [place] [id number] Notes/Report: REASON FOR REFERRAL No Information MEDICATIONS Medication SIG (Take, Route, Frequency, Duration) [...] Chronic constipation (K59.09) Active confirmed Chronic constipation (226280124) Problem Colon cancer screening (Z12.11) Active confirmed Colon can cer screening (541792790) Problem Diverticulosis of large intestine without perforation or abscess without bleeding (K57.30) Active confirmed Diverticul ar disease of colon (092085318) VITAL SIGNS Temperature 96.9 degrees Fahrenheit 12/24/2023 Blood pressure diastolic 00 mm Hg 12/24/2023 Height 5 ft 6 in in 12/24/2023 Blood pressure systolic 000 mm Hg 12/24/2023 Weight 227 lb 6 oz lbs 12/24/2023 BMI 36.70 kg/m2 12/24/2023 Encounters Encounter Location Date Provider Diagnosis [facility] [place] [facility] [address] [place] [phone] 03/27/2024 Reid Oh Encounter for screen ing colonoscopy Z12.11 ; Colon polyps K63.5 ; Diverticulosis of large intestine without perforation or abscess without bleeding K57.30 and Other hemorrhoids K64.8 [facility] [address] [place] [address] 12/24/2023 Reid Oh Chronic constipation K59.09 and Colon cancer screening Z12.11 ASSESSMENTS Encounter Date Diagnosis Assessment Notes Treatment Notes Treatment Clinical Notes 03/27/2024 Encounter for screening colonoscopy (ICD-10 - Z12.11) 03/27/2024 Colon polyps (ICD-10 - K63.5) 12/24/2023 Colon cancer screening (ICD-10 - Z12.11) 12/24/2023 Chronic constipation (ICD-10 - K59.09) Continue the Colace and Prune Juice daily 03/27/2024 Diverticulosis of large intestine without perforation or abscess without bleeding (ICD-10 - K57.30) 03/27/2024 Other hemorrhoids (ICD-10 - K64.8) PLAN OF TREATMENT Pending Test Test Name Order Date Pathology 03/27/2024 Future Test Test Name Order Date COLONOSCOPY 12/24/2023 Insurance Providers Payer Name Payer Address Payer Phone Subscriber Number Group Number Insured Name Patient Relationship to Insured Coverage Start Date Coverage End Date MEDICARE OF [place] [address] [place] [address] [id number] MARISELA SMITH Self - patient is the insured [place] [employer] [address] [place] [id number] MARISELA SMITH Self - patient is the insured MEDICAL (GENERAL) HISTORY Medical History History ICD Code HTN Thyroid cancer BPH Denies [place],DM,CVA,Lung disease,renal dise ase Surgical History Surgery Date(Month/Year) Thyroidectomy for cancer Cataracts
[2024-12-06 08:07] VITALS: BP 130/70; PULSE 70; RESP 18; TEMP 36.7; O2SAT 97; BMI 36.2
== END 2024-12-06 09:40 | disposition home or self-care (01) ==
PROVIDERS: PCP Nurse Practitioner Family; Visit Provider Nurse Practitioner Family
DX: M62.838 Other muscle spasm (principal)

== ENCOUNTER → 2024-12-06 08:00 | Outpatient (BNVA) | payer MEDICARE, OTHER, SELFPAY | PROVIDERS: PCP Nurse Practitioner Family; Visit Provider Nurse Practitioner Family | DX: M62.838 Other muscle spasm (principal) | CPT/HCPCS: 99212 ==

== ENCOUNTER 2025-02-12 11:17 | Outpatient (REF) | payer MEDICARE, OTHER, SELFPAY ==
--- NOTE | ~2025-02-12 | US_ITS ---
CLINICAL HISTORY: R39.12 - Poor urinary stream US Urinary Bladder Comparison: None Findings: The urinary bladder is unremarkable. Prevoid volume: 252 mL Postvoid volume: Empty Ureteral jets not seen. Suboptimally evaluated prostate measures approximately 4.8 x 4.2 x 4 cm (total volume of approximately 41 mL). IMPRESSION: No evidence of postvoid urinary bladder residue. This document has been electronically signed by: Brianna Zuluaga MD on 02/14/2025 10:33:00
--- OUTSIDE RECORDS SUMMARY | 2025-02-12 13:34 | XMS_ITS | Data Portability ---
Author Organization [place] [facility] Address [address] [address] Assessment Encounter Date Assessment Date Assessment LastModified by Organization Details LastModified Time 02/01/2025 02/01/2025 Cerumen removed successfully, which patient tolerated well. Continue daily use of binaural amplification. Recommend annual audiometric testing, sooner with perceived change. Patient may return as needed for cerumen management. Avoid Q-tips. [email or web address] Not available 02/01/2025 16:03:45 02/01/2025 02/01/2025 Hearing devices were found to be in working order after today's cleaning and annual maintenance. Recommend cerumen management; canals are almost completely occluded. If the patient continues to experience difficulty hearing, recommend retesting hearing and considering reprogramming hearing aids or updating new technology. [email or web address] Not available 02/06/2025 13:37:26 Plan of Treatment Reminders Order Date Submit Date Provider Last Modified By Organization Details Last Modified Time Details Appointments None record ed. Lab None record ed. Referral None record ed. Procedures None record ed. Surgeries None record ed. Imaging None record ed. Medication Orders None record ed. Patient TargetsNo targets recorded. Patient InstructionsNo instructions recorded. Reason for Referral None Reported. Problems Name Problem SNOMED Code Status Onset Date Resolution Date Notes Provider Name and Address Organization Details Recorded Time Tinnitus of right ear 27045317466 08 Active 2016 Tinnitus, right ear; Note: Date Diagnosed : 02/04/2017 9:48 AM (H93.11) Not Available 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; Note: Date Diagnosed : 01/17/2015 12:21 PM (225.1) Not Available [facility] 4 02:51:40 Subjectiv e tinnitus 49550546 Active 2014 Subjectiv e tinnitus; Note: Date Diagnosed : 01/17/2015 12:21 PM (388.31) Not Available [facility] 4 02:51:43 Benign neoplasm of meninges 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 Procedures Surgical History Date Name Laterality Status Provider Name and Address Organization Details Recorded Time 5 Cerumen removal without microscope bilat completed NIRU TRAORE PA-C [address] [place] [address], [phone], [facility] 02/01/2025 16:02:49 Imaging Results None recorded. Procedure Notes None recorded. Medical Equipment None Reported. Medications Name Sig Start Date Stop Date Status Note LastModified by Organization Details LastModified Time clonazepa m 1 mg tablet 02/04 completed Medicati on ID: [id number] Pr escribed By Name: Evette Costa nd Name: clonazep am Send Method: E-Prescr ibed Sub s Allowed: subs OK Speci al Instruct ion: Take 1 tablet 1 hour prior to MRI, may take second one if needed M edicatio nGeneric Name: clonazep am Not Available Not Available Not Available lorazepam 0.5 mg tablet 2020 active Medicati on ID: [id number] P rescribe d By Name: YAIMA Chadwick nd Name: lorazepa m Send Method: E-Prescr ibed Sub s Allowed: subs OK Speci al Instruct ion: Take 1 PO 30 min prior to procedur e; may repeat dose X 1 PRN Medi cationGe nericNam e: lorazepa m Not Available Not Available Not Available tamsulosi n 0.4 mg capsule TAKE 1 CAPSULE BY MOUTH AT BEDTIME active Not Available Not Available No t Available levothyro xine 125 mcg tablet TAKE 1 TABLET BY MOUTH EVERY DAY active Not Available Not Available No t Available lisinopri l 20 mg-hydroc hlorothia zide 25 mg tablet TAKE 1 TABLET BY MOUTH EVERY DAY active Not Available Not Available No t Available levofloxa nadine 500 mg tablet 02/04 completed Medicati on ID: [id number] Du ration Value: 10 Reason: () Brand Name: levoflox acin Sen d Method: E-Prescr ibed Sub s Allowed: subs OK Medic ationGen ericName : levoflox acin Not Available Not Available Not Available finasteri de 5 mg tablet TAKE 1 TABLET BY MOUTH DAILY active Not Available Not Available No t Available cyclobenz aprine 5 mg tablet TAKE 1 TABLET BY MOUTH AT BEDTIME NEEDED FOR MUSCLE SPASM active Not Available Not Available No t Available Unithroid 137 mcg tablet 12/10 completed Medicati on ID: [id number] D uration Value: 90 Brand Name: Unithroi d Send Method: E-Prescr ibed Sub s Allowed: No subs Med icationG enericNa me: Unithroi d Not Available Not Available Not Available Vitals None Recorded Social History None recorded. Functional Status None recorded. Mental Status None recorded. Family History Nothing Reported. Medical History No medical history recorded. Past Encounters Encounter ID Performer Location Encounter Start Date Encounter Closed Date Diagnosis/Indication Diagnosis SNOMED-CT Code Diagnosis ICD10 Code Diagnosis Note [id number] Kelechi MORENO RENDON - [address] [place] [address] 02/01/2025 14:54:46 02/05/2025 11:40:01 Sensorineural hearing loss of bilateral ears 534252063 H90.3 [id number] CAMILLE GALAN MD [facility] [address] [place] [address] 02/01/2025 15:40:51 02/01/2025 15:47:36 Impacted cerumen of bilateral ears 2697169924 223731 H61.23 Health Concerns Section Related Observation LastModified by Organization Detai ls LastModified Time None Recorded Concern Status LastModified by Organization Details LastModified Time None Recorded Advance Directives Directive None Recorded Payers Encounter Date Sequence Insurance Name Policy Number Policy Owen Covered Member ID Owen Member ID Guarantor Name 02/01/2025 2 [facility] (MEDICARE SUPPLEMENT) [facility] [place] [id number] Fernie 02/01/2025 1 MEDICARE B-IL: [facility] Fern[employer] [id number] Fernie 02/01/2025 2 [facility] (MEDICARE SUPPLEMENT) [facility] [place] [id number] Fernie 02/01/2025 1 MEDICARE B-IL: [facility] [place] [id number] [place] Notes Date Note Type Note Provider Name and Address Organization Details Recorded Time text/html Hearing Technology HistoryReported bypatient.Sound quality and programming settingsthey are satisfied with current settings and technology Daily useconsistent use of amplification Status of componentsmicrophone occluded with debris all microphones Patient returned for their annual fitting of amplification to discuss their ongoing communication needs and progress with amplification. They {{reported a change in their hearing ability. reported stable hearing. reported that the devices are not working properly (right weak)#}} The {{devices are* device is}} {{in warranty out of warranty* out of warranty and discontinued by the early intervention specialist}} at this time. TOÑO DORAN, AuD [address] [facility] [address], [place], [address], [place] [facility] 02/06/2025 13:37:38 5 text/html 79 year old male presents for cerumen removal. Impaction identified by audiology department. Patient denies otalgia and otorrhea. Hearing aids fit well and provide good benefit CAMILLE GALAN MD [address] [place] [address], [phone], [place] [facility] 02/01/2025 17:08:01
== END 2025-02-12 11:18 | disposition home or self-care (01) ==
LOC: HO.HMGCX 11:17
PROVIDERS: PCP Nurse Practitioner Family; Visit Provider Urology
DX: R39.12 Poor urinary stream (principal); N40.0 Benign prostatic hyperplasia without lower urinary tract symptoms
CPT/HCPCS: 76857

== ENCOUNTER → 2025-02-12 11:23 | Outpatient (BNV) | payer MEDICARE, OTHER, SELFPAY | PROVIDERS: PCP Nurse Practitioner Family; Visit Provider Radiology Diagnostic Radiology | DX: R39.12 Poor urinary stream (principal) | CPT/HCPCS: 76857 ==

== ENCOUNTER 2025-02-28 10:35 | Outpatient (AMB) | payer MEDICARE, OTHER, SELFPAY ==
--- NOTE | 2025-02-28 11:03 | A.OFFVIS_ITS ---
Intake Visit Reasons: 4m/US w/ UroFlow Allergies Penicillins [PENICILLINS] Allergy (Unknown, Verified 12/06/24 08:43) UNKNOWN tetanus and diphtheria toxoids [TETANUS AND DIPHTHERIA TOXOIDS] Allergy (Unknown, Verified 12/06/24 08:43) UNKNOWN HPI Comments Details: Sharif is a pleasant male. He is a patient of Dr. Claudio. He seen for the following urologic conditions - elevated PSA - lower urinary tract symptoms Four month follow-up on finasteride Uroflow suboptimal Continue finasteride Recheck PSA 4 month Bladder ultrasound has complete emptying 40 g prostate Elevated PSA with lower urinary tract symptoms Current medications tamsulosin Waking 2-3 times per night, sits to void due to weakness of stream - high AUA score BONG 2+ soft PSA - 11/11 10.0 Uroflow - suboptimal test less than 100 cc output Q max not interpretable reported 2.6 with average flow 1.3 and low PVR PFSH Medical History BPH (benign prostatic hyperplasia) HTN (hypertension) Thyroid cancer Surgical History H/O colonoscopy Hx of cataract extraction Hx of thyroidectomy Family History Father No problems noted. Mother No problems noted. Social History Housing: House Patient Tobacco Use Status: Never used Tobacco e-Cigarette/Vaping Use: Never Used service: No Current occupational status: retired Cognitive needs: No Hearing needs: Yes Vision needs: No Review of Systems Const Denies chills and Denies fever(s) Card Reports no additional complaints and Denies syncope Resp Denies cough GI Denies abdominal pain and Denies heartburn Reports as per HPI and Denies change in libido Neuro Denies syncope Psych Denies change in libido Endo Denies change in libido Physical Exam Const General: cooperative, healthy appearing, comfortable and no acute distress Orientation/consciousness: patient oriented x3 HEENT Face and sinus: Yes normal facial exam Mouth: moist mucous membranes Neck Neck: Yes normal visual inspection, Yes full ROM and Yes trachea midline Chest Chest palpation & inspection: normal inspection of the chest Resp Effort & Inspection: normal respiratory effort, able to speak in complete sen tences and no respiratory distress GI Inspection: Yes normal to inspection Back/Spine/Pelvis Cervical Spine: normal cervical lordosis Thoracic/Lumbar Spine: thoracic and lumbar spine normal to inspection Skin General skin exam: no rashes or lesions noted Neuro General: patient oriented x3, gait normal, tone normal and moves all extremities Extrem General: Yes normal to inspection and Yes capillary refill normal Office Procedures AMB Uroflow Complex uroflow performed by: Rogers White Maximum urinary flow rate (mL/second): 2.6 Voiding time (seconds): 22 Voided volume (mL): 26 Residual urine (mL): 0 Comments: Suboptimal test, less than 100 cc voided. Interpretation not possible [id number] Procedure code (CPT) selection complete Assessment & Plan Assessment & Plan (1) BPH (benign prostatic hyperplasia): Code(s): N40.0 - Benign prostatic hyperplasia without lower urinary tract symptoms Category: Medical (2) Elevated PSA: Code(s): R97.20 - Elevated prostate specific antigen [PSA] Category: Medical Plan Continue finasteride 4-month follow-up check PSA Orders: Orders AMB Uroflow Today N40.0 - Benign prostatic hyperplasia without lower urinary tract symptoms PSA,Total (Free>4and<10) 4 Months R97.20 - Elevated prostate specific antigen [PSA] Medications: Refilled finasteride 5 mg PO DAILY 90 tabs 1RF 90 days N13.8 - Other obstructive and reflux uropathy, N40.0 - Benign prostatic hyperplasia without lower urinary tract symptoms, N40.1 - Benign prostatic hyperplasia with lower urinary tract symptoms, R33.9 - Retention of urine, unspecified Patient Instructions: This note is constructed using voice recognition software. While every effort has been made to ensure accuracy compound worker errors may have been included. Imaging studies, laboratory and physical exam results were discussed and reviewed in detail. No major barriers to patient understanding were identified. An opportunity to ask questions regarding the treatment plan was provided. All questions were answered. The patient expressed understanding and agreement with the above treatment plan. The patient is aware they should contact our office by phone for worsening of their current condition or the appearance of new urologic symptoms. Compliance is encouraged with any medications and followup testing that is ordered. It is a privilege to participate in the urologic care of your patient. If you have any questions or concerns regarding treatment for the above conditions, or other urologic issues, please do not hesitate to contact me. The office telephone contact is [phone]. Sincerely, Dr Rogers White MD, [facility] - Urology Compassionate Specialist Care for the Genitourinary System Coding Level of Care Code Est Pt Level 3 (84045) Diagnoses BPH (benign prostatic hyperplasia) N40.0 Elevated PSA R97.20
--- OUTSIDE RECORDS SUMMARY | 2025-02-28 11:37 | XMS_ITS ---
Author Organization [facility] Address [address] [place] [address] Care Team Providers Care Oil Drilling Engineer Name Role Phone Sudheer John MD Primary Care Provider Unavailab Reid Hernandez [phone] REASON FOR VISIT screening,constipation Problems Problem Type SNOMED Code ICD Code Onset Dates Problem Status W/U Status Risk Notes Problem Diverticulosis o f large intestine without perforation or abscess without bleeding (K57.30) Active confirmed Encounters Encounter Location Date Provider Diagnosis [facility] Outpatient [address] [place] [address] [phone] 03/27/2024 Reid Oh Encounter for scre ening [...] * MARISELA SMITH LDOB:[birth year] (79 yo M)Acc No.[id number]:03/27/2024 COLON WITH MAC Patient:?MARISELA SMITH Provider:?Reid Oh MD :1945???Age:78 Y???Sex:Male Ryan e:03/27/2024 Address:[facility] [id number] Pcp:Sudheer John MD Subjective: * Chief Complaints: * ???1. Screening,constipation . * Medical History:? Objective: * Vitals:? Assessment: * Assessment: 1.?Encounter for screening c olonoscopy - Z12.11 (Primary)???2.?Colon polyps - K63.5???3.?Diverticulosis of large intestine without perforation or abscess without bleeding - K57.30???4.?Other hemorrhoids - K64.8??? Plan: * Treatment: * Procedure Codes:?76933 COLON OSCOPY AND BIOPSY, Modifiers: PT , 0529F INTRVL 3+YRS PTS CLNSCP DOCD, 0528F RCMND FLW-UP 10 YRS DOCD, Modifiers: 1P * * The named appointment provid er may or may not be the originator of this progress note, and it is not deemed complete until electronically signed by the appointment provider. Sign off status: Pending * Provider:?Reid Oh MD Date:? 024 Generated for Henrietta grimm/Tico/eTransmitting on:?02/28/2025 11:37 AM EDT
--- OUTSIDE RECORDS SUMMARY | 2025-02-28 11:37 | XMS_ITS ---
Author Organization [facility] Address [address] [place] [address] Care Team Providers Care Oracle Fusion Consultant Name Role Phone Sudheer John MD Primary Care Provider Reid Jiang Unavailable [phone] Allergies Allergen (clinical drug ingredient) Drug/Non Drug Allergy documented on EMR Reaction Allergy Type Onset Date Status Tetanus Toxoids Unknown Drug Allergy A ctive Penicillin Unknown Drug Allergy Active REASON FOR VISIT Patient presents today for CONSTIPATION Medications Medication SIG (Take, Route, Frequency, Duration) Notes Start Date End Date Status Tamsulosin HCl 0.4 MG TAKE 1 CAPSULE BY MOUTH EVERY DAY AT BEDTIME Oral for 90 Active Lisinopril-hydroCHLOROthiazi de 20-25 MG TAKE 1 TABLET BY MOUTH EVERY DAY Oral for 90 Active Levothyroxine Sodium 125 MCG TAKE 1 TABL ET BY MOUTH EVERY DAY Oral for 90 Active Immunizations Vaccine Route Administration Date Status Comme nts Influenza Unknown 12/24/2023 Refused Social History Tobacco Use: Social History Observation Description Date Details (start date - stop date) Never Smoker NA - NA Tobacco Use/Smoking Question Answer Notes Patient is [...] Never (0 point) Points 3 Interpretation Negative Section Notes: Nonsmoker; no sig alcohol Problems Problem Type SNOMED Code ICD Code Onset Dates Problem Status W/U Status Risk Notes Problem Chronic constipation (580117444) Chronic constipation (K59.09) Active confirmed Problem Colon cancer screening (Z12.11) Active confirmed Vital Signs Temperature 96.9 degrees Fahrenheit 12/24/19 24 Blood pressure systolic 000 mm Hg 12/24/19 24 Blood pressure diastolic 00 mm Hg 024 Height 5 ft 6 in in 12/24/2023 Weight 227 lb 6 oz lbs 12/24/2023 BMI 36.70 kg/m2 12/24/2023 Encounters Encounter Location Date Provider Diagnosis [facility] [address] [place] [address] 12/24/2023 Reid Althea Chronic constipation K59.09 and Colon cancer screening Z12.11 Assessments Encounter Date Diagnosis (ICD Code) Assessment Notes Treatment Notes Treatment Clinical Notes Section Notes 12/24/2023 Chronic constipation (ICD-10 - K59.09) Continue the Colace and Prune Juice daily Overall, Mr. Concepcion appears quite well. We did review his history of chronic constipation which at this point has nicely improved with a simple regimen of some prune juice and stool softeners. His bowel movements have presently normalized and he is not having any worrisome GI complaints. As such, I did advise him to continue his prune juice and Colace on a regular and daily basis. From a clinical standpoint it does not appear that he is having any worrisome GI symptoms to suggest any significant GI pathology. Nonetheless, given his age, good clinical appearance, his last colonoscopy being over 10 years ago, and previous worsening constipation, I did recommend a colonoscopy for further evaluation. Full consent was obtained from him for this, including risks of bleeding and perforation. The procedure will be done with monitored anesthesia care. Mr. Concepcion was very comfortable with this plan. Thank you again for allowing me to participate in Mr. Concepcion's care. I shall continue to keep you advised of his progress. 12/24/2023 Colon cancer screening (ICD-10 - Z12.11) Overall, Mr. Concepcion appears quite well. We did review his history of chronic constipation which at this point has nicely improved with a simple regimen of some prune juice and stool softeners. His bowel movements have presently normalized and he is not having any worrisome GI complaints. As such, I did advise him to continue his prune juice and Colace on a regular and daily basis. From a clinical standpoint it does not appear that he is having any worrisome GI symptoms to suggest any significant GI pathology. Nonetheless, given his age, good clinical appearance, his last colonoscopy being over 10 years ago, and previous worsening constipation, I did recommend a colonoscopy for further evaluation. Full consent was obtained from him for this, including risks of bleeding and perforation. The procedure will be done with monitored anesthesia care. Mr. Concepcion was very comfortable with this plan. Thank you again for allowing me to participate in Mr. Concepcion's care. I shall continue to keep you advised of his progress. Plan Of Treatment Treatment Notes Assessment Notes Chronic constipation Continue the Colace and Prune Juice daily Future Test Test Name Order Date COLONOSCOPY 12/24/2023 Next Appt Details Follow Up: prn, Reason: Progress Notes * MARISELA SMITH LDOB:[birth year] (78 yo M)Acc No.[id number]:12/24/2023 Progress Notes Patient:?MARISELA SMITH Provider:?Reid Oh MD :1945???Age:78 Y???Sex:Male Ryan e:12/24/2023 Address:[facility] [id number] Pcp:Sudheer John MD Subjective: * Chief Complaints: * ???Patient presents today fo r CONSTIPATION * HPI: ???incontinence:? I saw Mr. Concepcion in consultation today in regard to further evaluation of his chronic constipation and discussion of colorectal cancer screening. ?As you know, Mr. Concepcion is a very healthy 78-year-old male who generally feels well. He does describe a fairly long-standing history of constipation which has worsened somewhat with associated straining with bowel movements. He has not noticed any hematochezia nor melena. He has found that by using a daily small glass of prune juice and 2 Colace stool softeners this has worked very well to resolve his constipation. He has not had any abdominal pain, jaundice, nor unintentional weight loss. He enjoys a good appetite, without any significant heartburn or dysphagia. He describes a negative colonoscopy over 10 years ago. He denies any known family history of colon cancer. * ROS:?General/Constitutional:?Change in appetite?denies.?Chills?denies.?Fatigue?denies.?Ophthalmologic:?Comments?all negative.?ENT:?Comments?all negative.?Respiratory:?hemoptysis?denies.?Cough?denies.?Cardiovascular:?Chest pain?denies.?Orthopnea?denies.?Gastrointestinal:?Comments?See HPI for details.?Genitourinary:?Hematuria?denies.?Dysuria?denies.?Musculoskeletal:?Painful joints?denies.?Weakness?denies.?Skin:?Itching?denies.?Rash?denies.?Neurologic:?Headache?denies.?Seizures?denies.?Psychiatric:?Comments?all negative.? * Medical History:? * Surgical History:?Thyroidect lloyd for cancer Cataracts * Hospitalization/Major Diagno stic Procedure:?No Hospitalization History. * Family History:?Father: dece ased.?Mother: , diagnosed with Heart disease.? No family history of colon cancer. * Social History:?Tobacco Use:?Tobacco Use/Smoking?Patient is a?nonsmoker.?Drugs/Alcohol:?Alcohol Screen?Did you have a drink containing alcohol in the past year??Yes,?How often did you have a drink containing alcohol in the past year??2 to 3 times a week (3 points),?How many drinks did you have on a typical day when you were drinking in the past year??1 or 2 drinks (0 point),?How often did you have 6 or more drinks on one occasion in the past year??Never (0 point),?Points?3,?Interpretation?Negative.?Miscellaneous:?Marital status: . Occupation: retired. ???Nonsmoker; no sig alcohol. * Medications:?TakingTamsulosi n HCl 0.4 MG Capsule TAKE 1 CAPSULE BY MOUTH EVERY DAY AT BEDTIME Oral Lisinopril-hydroCHLOROthiazide 20-25 MG Tablet TAKE 1 TABLET BY MOUTH EVERY DAY Oral Levothyroxine Sodium 125 MCG Tablet TAKE 1 TABLET BY MOUTH EVERY DAY Oral Medication List reviewed and reconciled with the patientTaking Tamsulosin HCl 0.4 MG Capsule TAKE 1 CAPSULE BY MOUTH EVERY DAY AT BEDTIME Oral Taking Lisinopril-hydroCHLOROthiazide 20-25 MG Tablet TAKE 1 TABLET BY MOUTH EVERY DAY Oral Taking Levothyroxine Sodium 125 MCG Tablet TAKE 1 TABLET BY MOUTH EVERY DAY Oral Medication List reviewed and reconciled with the patient * Allergies:?PenicillinTetanus Toxoidsyes[Allergies Verified] Objective: * Vitals:?Wt: 227 lb 6 oz, Ht: 5 ft 6 in, BMI:36.70 Index, BP: 000/00 mm Hg, Temp: 96.9. * Examination: ???General Examination: ?GENERAL APPEARANCE:?pleasant, well nourished, well developed, in no acute distress.?EYES:?sclera non-icteric.?ORAL CAVITY:?mucosa moist.?NECK/THYROID:?no cervical lymphadenopathy, neck supple.?SKIN:?nonjaundiced, no spider angiomata.?HEART:?S1, S2 normal.?LUNGS:?clear to auscultation bilaterally.?ABDOMEN:?normal bowel sounds, no guarding or rigidity, no guarding or rigidity, no masses palpable, soft, nontender, nondistended.?EXTREMITIES:?no edema.?NEUROLOGIC:?alert and oriented.? Assessment: * Assessment: 1.?Chronic constipation - K5 9.09 (Primary)?2.?Colon cancer screening - Z12.11? Overall, Mr. Concepcion kevin ears quite well. We did review his history of chronic constipation which at this point has nicely improved with a simple regimen of some prune juice and stool softeners. His bowel movements have presently normalized and he is not having any worrisome GI complaints. As such, I did advise him to continue his prune juice and Colace on a regular and daily basis. From a clinical standpoint it does not appear that he is having any worrisome GI symptoms to suggest any significant GI pathology. Nonetheless, given his age, good clinical appearance, his last colonoscopy being over 10 years ago, and previous worsening constipation, I did recommend a colonoscopy for further evaluation. Full consent was obtained from him for this, including risks of bleeding and perforation. The procedure will be done with monitored anesthesia care. Mr. Concepcion was very comfortable with this plan. Thank you again for allowing me to participate in Mr. Concepcion's care. I shall continue to keep you advised of his progress. Plan: * Treatment: Notes: Continue the Colace and Prune Juice daily??2.?Colon cancer screening?Procedure: COLONOSCOPY (Ordered for 12/24/2023)* with MACsched for 03/27/24 at 10:00 ammiralax * Immunizations:? Influenza (Not administered - Refused: Patient decision) * Procedure Codes:?1036F TOBAC CO NON-[id number] BP SCR NOT PRFRM REC REASON NOS * Preventive Medicine:? ??Counseling:?Care goal follow-up plan:?Above Normal BMI Follow-up?Giving encouragement to exercise,?BMI management provided?Yes.? * Follow Up:?prn * * Sign off status: Completed true * Provider:?Reid Oh MD Date:? 024 Generated for Henrietta grimm/Tico/Jesseitting on:?02/28/2025 11:37 AM EDT History and Physical Notes * HPI (History of Present Illness) Category Sub-Category Detail Notes Category Not es incontinence I saw Mr. Concepcion in consultation today in regard to further evaluation of his chronic constipation and discussion of colorectal cancer screening. As you know, Mr. Concepcion is a very healthy 78-year-old male who generally feels well. He does describe a fairly long-standing history of constipation which has worsened somewhat with associated straining with bowel movements. He has not noticed any hematochezia nor melena. He has found that by using a daily small glass of prune juice and 2 Colace stool softeners this has worked very well to resolve his constipation. He has not had any abdominal pain, jaundice, nor unintentional weight loss. He enjoys a good appetite, without any significant heartburn or dysphagia. He describes a negative colonoscopy over 10 years ago. He denies any known family history of colon cancer. Examination Category Sub-Category Detail Notes Category Not es General Examination GENERAL APPEARANCE: pleasant , well [...]
--- OUTSIDE RECORDS SUMMARY | 2025-02-28 11:37 | XMS_ITS | Data Portability ---
Author Organization [place] [facility], Allergy Address [address] [address] Assessment Encounter Date Assessment Date Assessment LastModified [...] reprogramming hearing aids or updating new technology. [email or web address] Not available 02/06/2025 13:37:26 Plan of Treatment [...] Details Recorded Time Tinnitus of right ear 68168144997 08 Active 2016 Tinnitus, right ear; Note: Date Diagnosed : 02/04/2017 9:48 AM (H93.11) Not Available [facility] 4 02:51:37 Sensorine ural hearing loss of bilateral ears 259607901 Active 2016 Sensorine ural hearing loss, bilateral ; Note: Date Diagnosed : 02/04/2017 9:48 AM (H90.3) Not Available [facility] 4 02:51:43 Asymmetri jesus sensorine ural hearing loss 214926225 Active 2014 Sensorine ural HL, asymmetri c; Note: Date Diagnosed : 01/17/2015 11:47 AM (389.16) Not Available [facility] 4 02:51:41 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; Note: Date Diagnosed : 01/17/2015 12:21 PM (225.1) Not Available [facility] 4 02:51:40 Subjectiv e tinnitus 08101319 Active 2014 Subjectiv e tinnitus; Note: Date Diagnosed : 01/17/2015 12:21 PM (388.31) Not Available [facility] 4 02:51:43 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 Procedures Surgical History Date Name Laterality Status Provider Name and Address Organization Details Recorded Time 5 Cerumen removal without microscope bilat completed NIRU TRAORE PA-C [address] [place] [address], [id number], [facility] - [facility] 02/01/2025 16:02:49 Imaging Results None recorded. Procedure Notes None recorded. Medical Equipment None Reported. Medications Name Sig Start Date Stop Date Status Note LastModified by Organization Details LastModified Time clonazepa m 1 mg tablet 02/04 completed Medicati on ID: [id number] Pr escribed By Name: Evette Costa nd Name: clonazep am Send Method: E-Prescr ibed Sub s Allowed: subs OK Speci al Instruct ion: Take 1 tablet 1 hour prior to MRI, may take second one if needed M edicatio nGeneric Name: clonazep am Not Available Not Available Not Available lorazepam 0.5 mg tablet 2020 active Medicati on ID: [id number] P rescribe d By Name: YAIMA Chadwick [...] mg tablet 02/04 completed Medicati on ID: [id number] Du ration Value: 10 Reason: () Brand [...] mcg tablet 12/10 completed Medicati on ID: [id number] D uration Value: 90 Brand Name: Unithroi [...] SNOMED-CT Code Diagnosis ICD10 Code Diagnosis Note [id number] Kelechi MORENO RENDON - [address] [place] [address] 02/01/2025 14:54:46 02/05/2025 11:40:01 Sensorineural hearing loss of bilateral ears [id number] H90.3 15834 NIRU TRAORE PA-C [facility] [address] [place] [address] 02/01/2025 15:40:51 02/01/2025 15:47:36 Impacted cerumen of bilateral ears [id number] 582519 H61.23 Health Concerns Section Related Observation LastModified by Organization Detai ls LastModified Time None Recorded Concern Status LastModified by Organization Details LastModified Time None Recorded Advance Directives Directive None Recorded Payers Insurance Date Sequence Insurance Name Policy Number Policy Owen Covered Member ID Owen Member ID Guarantor Name 02/07/2025 2 [facility] (MEDICARE SUPPLEMENT) Sharif Helms [id number] Sharif Helms 02/01/2025 1 MEDICARE B-[place]: [facility] [employer] Sharif Helms [id number] Sharif Helms Notes Date Note Type Note Provider Name and Address Organization Details Recorded Time 5 text/html Hearing Technology HistoryReported bypatient.Sound quality and [...] out of warranty and discontinued by the frame table operator helper}} at this time. TOÑO DORAN, Kelechi [address] [facility],[place] [address], [place], [address], [facility] - [facility] 02/06/2025 13:37:38 5 text/html 79 year old male presents for cerumen removal. Impaction identified by audiology department. Patient denies otalgia and otorrhea. Hearing aids fit well and provide good benefit CAMILLE GALAN MD [address] [place] [address], [place], [address], [place] - [facility] 02/01/2025 17:08:01
--- OUTSIDE RECORDS SUMMARY | 2025-02-28 11:38 | XMS_ITS | Patient Health Record ---
Author Organization [facility] Address [address] [place] [address] Care Team Providers Care Teacher Of The Handicapped Name Role Phone Sudheer John MD Primary Care Provider Unavailab Reid Hernandez Unavailable [phone] Allergies Allergen (clinical drug ingredient) Drug/Non Drug Allergy documented on EMR Reaction Allergy Type Onset Date Status Tetanus Toxoids Unknown Drug Allergy A ctive Penicillin Unknown Drug Allergy Active Results Component Value Reference Range Notes Pathology (Not yet reviewed by provider) Interpretation: Performing Lab:[facility], [address] [place] [id number] Notes/Report: Name: Bear Smith yennymahi Age/Sex: 78/M : 1945 Unit#: [id number] Attend Dr: Reid Oh Re03/27/24 Status : [facility] Location: [facility] Disch: SPEC : [id number] RECD : 03/27/24 STATUS: GOPI STAPLES NUM: [id number] RINA: 03/27/[address] [facility] [address]: Reid Oh ENTERED: 03/27/24- 44 SP TYPE: Surgical OTHR DR: Sudheer John MD ORDERED: HE Stain/3, Gross Micro L4 Diagnosis Colon, 20 cm, polype ctomy: Hyperplastic mucosal polyp. Clinical History Pre-Op Dx: Screening Post-Op Dx: Polyp, diverticulosis, hemorrhoids Microscopic Description Microscopic sections reviewed. Material Received Polyp at 20 cm Gross Description Received in formalin labeled ?polyp at 20 cm? are 2 poon irregular tissue fragments each measuring 0.2 cm, van bmitted in toto in a cassette labeled A. CEDMohan Copies To: Sudheer John MD [address] [place] [address] Reid Oh [address] [place] [address] [id number] [place] [id number] Signed (si gnature on file) Jeremiah Duncan MD 03/29/24 0712 END OF REPORT Reason For Referral No Information Medications Medication SIG (Take, Route, Frequency, Duration) [...] Problem Status W/U Status Risk Notes Problem Colon cancer screening (Z12.11) Active confirmed Problem Diverticular disease of colon (536793577) Diverticulosis of large intestine without perforation or abscess without bleeding (K57.30) Active confirmed Problem Chronic constipation (096407255) Chronic constipation (K59.09) Active confirmed Encounters Encounter Location Date Provider Diagnosis [facility] [address] [place] [id number] 03/27/2024 Reid Oh Encounter for scre ening [...] hemorrhoids (ICD-10 - K64.8) Plan Of Treatment Pending Test Test Name Order Date Pathology 03/27/2024 Future Test Test Name Order Date COLONOSCOPY 12/24/2023 Insurance Providers Payer Name Payer Address Payer Phone Subscriber Number Group Number Insured Name Patient Relationship to Insured Coverage Start Date Coverage End Date MEDICARE OF [place] [address] [place] [address] [phone] [id number] MARISELA SMITH Self - patient is the insured [employer] [address] [place] [phone] [id number] MARISELA SMITH Self - patient is the insured Medical (General) History Medical History History ICD Code HTN Thyroid cancer BPH Denies [place],DM,CVA,Lung disease,renal dise ase Surgical History Surgery Date(Month/Year) Thyroidectomy for cancer Cataracts
== END 2025-02-28 11:51 | disposition home or self-care (01) ==
LOC: HO.HUSH 10:36
PROVIDERS: PCP Nurse Practitioner Family; Visit Provider Urology
DX: N40.0 Benign prostatic hyperplasia without lower urinary tract symptoms (principal); R97.20 Elevated prostate specific antigen [PSA]
CPT/HCPCS: 99213

== ENCOUNTER → 2025-02-28 10:35 | Outpatient (BNVA) | payer MEDICARE, OTHER, SELFPAY | PROVIDERS: PCP Nurse Practitioner Family; Visit Provider Urology | DX: N40.0 Benign prostatic hyperplasia without lower urinary tract symptoms (principal); R97.20 Elevated prostate specific antigen [PSA] | CPT/HCPCS: 99212 ==

== ENCOUNTER 2025-03-22 07:53 | Outpatient (REF) | payer MEDICARE, OTHER, SELFPAY ==
--- OUTSIDE RECORDS SUMMARY | 2025-03-22 07:57 | XMS_ITS ---
Author Organization [facility] Address [address] [place] [address] Care Team Providers Care Hydroelectric Mechanic Name Role Phone Sudheer John MD Primary Care Provider Reid Jiang Unavailable [phone] Allergies Allergen (clinical drug ingredient) Drug/Non Drug [...] W/U Status Risk Notes Problem Chronic constipation (575491880) Chronic constipation (K59.09) Active confirmed Problem Colon cancer screening (428840897) Colon cancer screening (Z12.11) Active confirmed Vital Signs Temperature 96.9 degrees Fahrenheit 12/24/19 24 Blood pressure systolic 000 mm Hg 12/24/19 24 Blood pressure diastolic 00 mm Hg 024 Height 5 ft 6 in in 12/24/2023 Weight 227 lb 6 oz lbs 12/24/2023 BMI 36.70 kg/m2 12/24/2023 Encounters Encounter Location Date Provider Diagnosis [facility] [address] [place] [address] 12/24/2023 Reid Althea Chronic constipation K59.09 and [...] * MARISELA SMITH LDOB:[birth year] (78 yo M)Acc No.[id number]:12/24/2023 Progress Notes Patient:?MARISELA SMITH Provider:?Reid Oh MD :1945???Age:78 Y???Sex:Male Ryan e:12/24/2023 [facility] [id number] Pcp:Sudheer John MD Subjective: * Chief Complaints: [...] Patient decision) * Procedure Codes:?1036F TOBAC CO NON-[id number] BP SCR NOT PRFRM REC REASON NOS * Preventive Medicine:? ??Counseling:?Care goal follow-up plan:?Above Normal BMI Follow-up?Giving encouragement to exercise,?BMI management provided?Yes.? * Follow Up:?prn * * Sign off status: Completed true * Provider:?Reid Oh MD Date:? 024 Generated for Henrietta grimm/Tico/Pepper on:?03/22/2025 07:57 AM EDT History and Physical Notes * [...]
[2025-03-22 11:10] LABS: PSA,Total (Free>4and<10) 3.01 ng/mL (0.00-4.00)
== END 2025-03-22 07:54 | disposition home or self-care (01) ==
LOC: HO.HMGCLDS 07:53
PROVIDERS: PCP Nurse Practitioner Family; Visit Provider Urology
DX: N40.0 Benign prostatic hyperplasia without lower urinary tract symptoms (principal); Z12.5 Encounter for screening for malignant neoplasm of prostate
CPT/HCPCS: 36415; 84153

== ENCOUNTER 2025-04-23 10:47 | Outpatient (AMB) | payer MEDICARE, OTHER, SELFPAY ==
--- OUTSIDE RECORDS SUMMARY | 2024-03-27 04:40 | XMS_ITS ---
Author Organization [facility] Address [address] [place] [address] Care Team Providers Care Tableau Architect Name Role Phone Sudheer John MD Primary Care Provider Unavailab Reid Hernandez Unavailable [phone] REASON FOR VISIT screening,constipation Problems Problem Type SNOMED Code ICD Code Onset Dates Problem Status W/U Status Risk Notes Problem Diverticulosis o f large intestine without perforation or abscess without bleeding (K57.30) Active confirmed Encounters Encounter Location Date Provider Diagnosis [facility] Out[place] [address] [place] [phone] 03/27/2024 Reid Oh Encounter for scre ening [...] Of Treatment No Information Progress Notes * MARISELA SMITH LDOB:[birth year] (79 yo M)Acc No.[id number]:03/27/2024 COLON WITH MAC Patient: MARISELA ROMERO Provider: Rush Oh MD :1945 A ge:78 Y S ex:Male Date:03/27/2024 Address:[address] [place] [address], [id number] Pcp:Sudheer John MD Subjective: * Chief Complaints: [...] 03/27/2024 Generated for Henrietta grimm/Tico/Lelasmitting on: 0 04/23/2025 11:42 AM EDT
[2025-04-23 10:54] VITALS: BP 132/76; PULSE 74; O2SAT 96; BMI 36.8
--- NOTE | 2025-04-23 10:54 | A.OFFPC_ITS ---
Vital Signs 04/23/25 10:54 Height 5 ft 6 in Weight 228 lb BMI 36.8 BP 132/76 Blood Pressure Location Lt brachial Position Sitting Pulse 74 Pulse Source Pulse Oximeter Pulse Oximetry (%) 96 Intake Visit Reasons: 6 months f/up Accompanied by: Self / Same As Patient Allergies Penicillins (PENICILLINS) Allergy (Unknown, Verified 04/23/25 10:55) UNKNOWN tetanus and diphtheria toxoids (TETANUS AND DIPHTHERIA TOXOIDS) Allergy (Unknown, Verified 04/23/25 10:55) UNKNOWN Medication List - Last Reconciled 04/23/25 by Sudheer Delaney, BLENDER/BRAZE APPLICATOR- finasteride 5 mg PO DAILY 90 days levothyroxine 125 mcg PO DAILY 90 days lisinopril-hydrochlorothiazide 20-25 mg 1 tab PO DAILY tamsulosin 0.4 mg PO BEDTIME 90 days Tobacco use date assessed: 10/23/24 Fall risk assessment: No Falls in past year Last assessed Fall Risk: 04/23/25 Dental Screening Dental Screen Date: 10/23/24 HPI 6 months f/up HPI Details Chief Complaint The patient presents with chronic left flank pain. History of Present Illness The patient is an 79-year-old male presenting with follow-up for hypertension and chronic left flank pain. Hypertension has been stable, with no reports of dizziness, chest pain, shortness of breath, headaches, or blurred vision. The patient reports chronic left flank pain persisting for years, radiating to the left lower quadrant and lateral aspect of the torso. There is no exacerbation of pain with torso movement or palpation, and no associated changes in bowel habits, fever, chills, or urinary issues. Social History Health Maintenance Review of Systems - Cardiovascular: Denies dizziness, ches t pain, or shortness of breath - Neurological: Denies headaches or blur red vision - Gastrointestinal: Denies changes in ata wel habits - General: Denies fever or chills - Genitourinary: Denies urinary issues Physical Exam General: Cooperative, healthy appearing, comfortable, no acute distress and well developed, obese Orientation: Patient oriented x3 Limitations: No limitations Head: Normal to inspection Ears: Hearing grossly normal bilaterally Nose: Normal external nose present Face and sinus: Normal facial exam Eyes: Appearance normal, both eyes and all related structures Neck: Normal visual inspection and Yes full ROM Respiratory: Lungs were fairly clear bilaterally Cardiovascular: Regular rate and rhythm. Normal S1 and S2 GI: Normal to inspection. Soft to palpation and nontender. No CVA tenderness with palpation. No rebound tenderness with deep palpation of left lower quadrant. Skin: No rashes or lesions noted Neuro: Patient oriented x3 Extremities: Normal to inspection Results Plan The plan includes ordering an abdominal ultrasound to evaluate the left lower quadrant and left kidney, given the chronic left flank pain. Additionally, the patient is encouraged to undergo laboratory tests, including a urinalysis, to further assess his condition. Discussion Notes I discussed with the patient the need for an abdominal ultrasound to investigate the chronic left flank pain and the importance of completing the recommended laboratory tests, including a urinalysis, to rule out any underlying conditions. Patient Instructions - Schedule an abdominal ultrasound as so on as possible. - Complete the recommended laboratory te sts, including a urinalysis. [facility] Medical History BPH (benign prostatic hyperplasia) HTN (hypertension) Thyroid cancer Surgical History H/O colonoscopy Hx of cataract extraction Hx of thyroidectomy Family History Father No problems noted. Mother No problems noted. Social History Housing: House Patient Tobacco Use Status: Never used Tobacco e-Cigarette/Vaping Use: Never Used service: No Current occupational status: retired Cognitive needs: No Hearing needs: Yes Vision needs: No Questionnaire Thrive Questionnaire Date Thrive assessed: 04/23/25 I am a: Patient What is your living situation today?: I have a steady place to live Within the past 12 months, did the food you bought not last and you didn't have the money to get more?: Never true Within the past 12 months, did you worry whether your food would run out before you got money to buy more?: Never true Do you have trouble paying for medicines?: No Do you have trouble getting transportation to medical appointments?: No Do you have trouble paying your heating and electricity bill?: No Do you have trouble taking care of your child, family member or friend?: No Do you have trouble with day-to-day activities such as bathing, preparing meals, shopping, managing finances, etc.?: No Are you currently unemployed and looking for a job?: No Are you interested in more education?: No Please select the resources that you would like help with: None Currently or been in a relationship where the following occur: No concerns reported THRIVE Score: 0 WYATT-7 AMB Questionnaire WYATT-7 Date WYATT - 7 assessed: 10/23/24 Source: Developed by Drs. Reid Saeed, Taylor Marquis, Marek Pagan and colleagues, with an educational nidhi from [employer]. Physical exam (Primary Care) Vital Signs: Last Vital Signs Pulse 74 04/23/25 10:54 BP 132/76 04/23/25 10:54 Pulse Ox 96 04/23/25 10:54 BMI result Body Mass Index 36.8 Tobacco/Smoking Status: Tobacco use Status Tobacco use date assessed 10/23/24 04/23/25 10:56 Patient Tobacco Use Status Never used Tobacco 04/23/25 10:56 e-Cigarette/Vaping Use Never Used 04/23/25 10:56 Thrive Assessment: Date of Thrive Assessment Date Thrive assessed 04/23/25 04/23/25 10:56 Currently or been in a relationship where the following occur: No concerns reported Coding Level of Care Code Est Pt Level 4 (42597) Diagnoses HTN (hypertension) I10 Left flank pain R10.9 LLQ pain R10.32 Assessment & Plan Assessment & Plan (1) HTN (hypertension): Code(s): I10 - Essential (primary) hypertension Category: Medical (2) Left flank pain: Code(s): R10.9 - Unspecified abdominal pain Category: Medical (3) LLQ pain: Code(s): R10.32 - Left lower quadrant pain Category: Medical Plan . Orders: Orders Comprehensive [place]. Panel Fast Today I10 - Essential (primary) hypertension TSH reflex Free T4 Today I10 - Essential (primary) hypertension UA CC w/rflx Micro + Cult Today I10 - Essential (primary) hypertension Complete Blood Count Auto Diff Today I10 - Essential (primary) hypertension Lipid Panel Today I10 - Essential (primary) hypertension US abdomen complete Today R10.32 - Left lower quadrant pain, R10.9 - Unspecified abdominal pain
--- OUTSIDE RECORDS SUMMARY | 2025-04-23 11:43 | XMS_ITS | Data Portability ---
Author Organization [place] [facility], [facility] Address [address] [address] Assessment Encounter Date Assessment Date Assessment LastModified [...] reprogramming hearing aids or updating new technology. [email or web address] Not available 02/06/2025 13:37:26 Plan of Treatment [...] Details Recorded Time Tinnitus of right ear 85900275637 08 Active 2016 Tinnitus, right ear; Note: Date Diagnosed : 02/04/2017 9:48 AM (H93.11) Not Available [facility] 4 02:51:37 Sensorine ural hearing loss of bilateral ears 166755457 Active 2016 Sensorine ural hearing loss, bilateral ; Note: Date Diagnosed : 02/04/2017 9:48 AM (H90.3) Not Available [facility] 4 02:51:43 Asymmetri jesus sensorine ural hearing loss 890603191 Active 2014 Sensorine ural HL, asymmetri c; Note: Date Diagnosed : 01/17/2015 11:47 AM (389.16) Not Available [facility] 4 02:51:41 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; Note: Date Diagnosed : 01/17/2015 12:21 PM (225.1) Not Available [facility] 4 02:51:40 Subjectiv e tinnitus 84287682 Active 2014 Subjectiv e tinnitus; Note: Date Diagnosed : 01/17/2015 12:21 PM (388.31) Not Available [facility] 4 02:51:43 Benign neoplasm of meninges 726014413 Active 2016 Meningiom a NOS; Note: Date Diagnosed : 02/04/2017 10:30 AM (D32.9) Not Available [facility] 4 02:51:42 Impacted cerumen of bilateral ears 98876420832 62453 Active 2018 Impacted cerumen, bilateral ; Note: Date Diagnosed : 11/29/2018 11:50 AM (H61.23) Not Available [facility] 4 02:51:39 Problem Notes None recorded. Procedures Surgical History Date Name Laterality Status Provider Name and Address Organization Details Recorded Time 5 Cerumen removal without microscope bilat completed NIRU TRAORE PA-C [address] [place] [address], [id number], [facility] - [facility] 02/01/2025 16:02:49 Imaging Results None recorded. Procedure Notes None recorded. Medical Equipment None Reported. Medications Name Sig Start Date Stop Date Status Note LastModified by Organization Details LastModified Time clonazepa m 1 mg tablet 02/04 completed Medicati on ID: [id number] Pr escribed By Name: Evette Costa nd Name: clonazep am Send Method: E-Prescr ibed Sub s Allowed: subs OK Speci al Instruct ion: Take 1 tablet 1 hour prior to MRI, may take second one if needed M chelita Ledesma Name: clonazep am Not Available Not Available Not Available lorazepam 0.5 mg tablet 2020 active Medicati on ID: [id number] P rescribe d By Name: YAMIA Chadwick nd Name: lorazepa m Send Method: [...] mg tablet 02/04 completed Medicati on ID: [id number] Du ration Value: 10 Reason: () Brand [...] mcg tablet 12/10 completed Medicati on ID: [id number] D uration Value: 90 Brand Name: Unithroi [...] SNOMED-CT Code Diagnosis ICD10 Code Diagnosis Note 20390 Kelechi MORENO RENDON - [address] [place] [phone] 02/01/2025 14:54:46 02/05/2025 11:40:01 Sensorineural hearing loss of bilateral ears 722685741 H90.3 11934 NIRU TRAORE PA-C [facility] [place] [address] [facility] [place] [id number] 02/01/2025 15:40:51 02/01/2025 15:47:36 Impacted cerumen of bilateral ears [id number] 608920 H61.23 Health Concerns Section Related Observation LastModified by Organization Detai ls LastModified Time None Recorded Concern Status LastModified by Organization Details LastModified Time None Recorded Advance Directives Directive None Recorded Payers Insurance Date Sequence Insurance Name Policy Number Policy Owen Covered Member ID Owen Member ID Guarantor Name 02/07/2025 2 [facility] (MEDICARE SUPPLEMENT) Sharif Helms [id number] Sharif Helms 02/01/2025 1 [place]IC[place] B-[place] [facility] [employer] Sharif Helms [id number] [employer] Notes Date Note Type Note Provider Name and Address Organization Details Recorded Time 5 text/html Hearing Technology HistoryReported bypatient.Sound quality and programming settingsthey are satisfied with current settings and technology Daily useconsistent use of amplification Status of componentsmicrophone occluded with debris all microphones Patient returned for their annual fitting of amplification to discuss their ongoing communication needs and progress with amplification. They reported that the devices are not working properly (right weak) The devices are out of warranty at this time. Kelechi MORENO [address] [facility],[address], [address], [place] - [facility] 02/06/2025 13:37:38 5 text/html 79 year old male presents for cerumen removal. Impaction identified by audiology department. Patient denies otalgia and otorrhea. Hearing aids fit well and provide good benefit CAMILLE GALAN MD [address] [facility],[place] [address], [place], [address], [place] [facility] 02/01/2025 17:08:01
== END 2025-04-23 11:33 | disposition home or self-care (01) ==
LOC: HO.HMCC 10:48
PROVIDERS: PCP Nurse Practitioner Family; Visit Provider Nurse Practitioner Family
DX: I10 Essential (primary) hypertension (principal); R10.9 Unspecified abdominal pain; R10.32 Left lower quadrant pain

== ENCOUNTER → 2025-04-23 10:47 | Outpatient (BNVA) | payer MEDICARE, OTHER, SELFPAY | PROVIDERS: PCP Nurse Practitioner Family; Visit Provider Nurse Practitioner Family | DX: I10 Essential (primary) hypertension (principal); R10.9 Unspecified abdominal pain; R10.32 Left lower quadrant pain | CPT/HCPCS: 99212 ==

== ENCOUNTER 2025-04-24 07:09 | Outpatient (REF) | payer MEDICARE, OTHER, SELFPAY ==
--- OUTSIDE RECORDS SUMMARY | 2024-03-27 04:40 | XMS_ITS ---
Author Organization [facility] Address [address] [place] [address] Care Team Providers Care Landman Name Role Phone Sudheer John MD Primary Care Provider Unavailab Reid Hernandez Unavailable [phone] REASON FOR VISIT screening,constipation Problems Problem Type SNOMED Code ICD Code Onset Dates Problem Status W/U Status Risk Notes Problem Diverticular disease of colon (756945799) Diverticulosis of large intestine without perforation or abscess without bleeding (K57.30) Active confirmed Encounters Encounter Location Date Provider Diagnosis [facility] Outpatient [address], [place] [phone] 03/27/2024 Reid Oh Encounter for scre ening [...] Of Treatment No Information Progress Notes * FRANCISCOMARISELA LDOB:[birth year] (79 yo M)Acc No.[id number]:03/27/2024 COLON WITH MAC Patient: MARISELA ROMERO Provider: Rush Oh MD :1945 A ge:78 Y S ex:Male Date:03/27/2024 Address:[facility] [address] , [id number] Pcp:Sudheer John MD Subjective: * Chief Complaints: [...] 03/27/2024 Generated for Henrietta grimm/Tico/Lelasmitting on: 0 04/24/2025 07:10 AM EDT
[2025-04-24 11:10] LABS: Appearance Urine Clear; Glucose Urine UA Negative (Negative); PH 5.5 (5.0-9.0); Specific Gravity - Urine 1.015 (1.005-1.025)
[2025-04-24 11:12] LABS: MANUAL DIFF FLAG NO
[2025-04-24 11:23] LABS: Hematocrit 40.1 % (42.0-52.0); Hemoglobin 13.0 g/dl (14.0-18.0); Imm Gran Abs Auto 0.07 X10*3/uL (0.00-0.03); Imm Gran Pct Auto 1.0 % (0.0-0.4); Lymphocytes Absolute Auto 2.1 X10*3/uL (1.2-4.9); Mean Corpuscular HGB Conc 32.4 g/dl (31.0-36.0); Mean Corpuscular Hemoglobin 28.6 pg (27.0-33.0); Mean Corpuscular Volume 88.1 fL (80.0-98.0); NRBC Abs Auto 0.000 X10*3/uL (0.0-0.012); NRBC Pct Auto 0.0 /100WBC (0.0-0.2); Platelet Count 190 X10*3/uL (160-400); Red Blood Count 4.55 X10*6/uL (4.60-5.80); White Blood Count 6.8 X10*3/uL (4.8-10.8)
[2025-04-24 11:42] LABS: Alanine Aminotransferase 9 U/L (0-40); Albumin Level 4.1 g/dL (3.5-5.0); Alkaline Phosphatase 41 U/L (39-117); Anion Gap 10 (12-20); Aspartate Amino Transferase 20 U/L (5-37); Blood Urea Nitrogen 24 mg/dL (9-16); Calcium 8.3 mg/dL (8.4-10.2); Carbon Dioxide 27 mmol/L (22-29); Chloride 106 mmol/L (96-108); Cholesterol 180 mg/dL (<200); Estimated Glomerular Filt Rate 55; HDL Cholesterol 37 mg/dL (>40); Potassium 4.2 mmol/L (3.3-5.1); Sodium 139 mmol/L (135-145); Total Protein 5.9 g/dL (6.5-8.0); Triglycerides 165 mg/dL (<150)
== END 2025-04-24 07:10 | disposition home or self-care (01) ==
LOC: HO.HMGCLDS 07:09
PROVIDERS: PCP Nurse Practitioner Family; Visit Provider Nurse Practitioner Family
DX: I10 Essential (primary) hypertension (principal)
CPT/HCPCS: 36415; 80053; 80061; 81003; 84443; 85025

== ENCOUNTER 2025-06-21 10:50 | Outpatient (REF) | payer MEDICARE, OTHER, SELFPAY ==
--- OUTSIDE RECORDS SUMMARY | 2024-03-27 04:40 | XMS_ITS ---
Author Organization [facility] Address [address] [place] [address] Care Team Providers Care Skimmer Name Role Phone Sudheer John MD Primary Care Provider Unavailab Reid Hernandez Unavailable [phone] REASON FOR VISIT screening,constipation Problems Problem Type SNOMED Code ICD Code Onset Dates Problem Status W/U Status Risk Notes Problem Diverticular disease of colon (603313266) Diverticulosis of large intestine without perforation or abscess without bleeding (K57.30) Active confirmed Encounters Encounter Location Date Provider Diagnosis [facility] Outpatient [address] [place] [address] [phone] 03/27/2024 Reid Oh Encounter for scre ening [...] * [facility] LDOB:[birth year] (80 yo M)Acc No.[id number]:03/27/2024 COLON WITH MAC Patient: MARISELA ROMERO Provider: Rush Oh MD :1945 A ge:78 Y S ex:Male Date:03/27/2024 Address:[facility] [address] , [id number] Pcp:Sudheer John MD Subjective: * Chief Complaints: [...] 0 03/27/2024 Generated for Henrietta grimm/Tico/Lelasmitting on: 0 06/21/2025 12:28 PM EDT
--- NOTE | ~2025-06-21 | US_ITS ---
EXAMINATION: US ABDOMEN COMPLETE CLINICAL INFORMATION: Left lower quadrant pain.. COMPARISON: None available. TECHNIQUE: Real-time imaging of the abdominal viscera. FINDINGS: PANCREAS: Largely obscured by gas. ABDOMINAL AORTA: Largely obscured by gas. INFERIOR VENA CAVA: Visualized portions are normal. LIVER: The liver is mildly enlarged. Mildly diffusely increased echogenicity is present, most likely steatosis. There is no suspicious lesion. The right hepatic lobe measures 20.0 cm. The liver contour is normal. No intra or extrahepatic biliary dilatation is present. GALLBLADDER: Gallbladder demonstrates a small partially calcified mural-based polyp measuring 3 mm. The gallbladder is otherwise normal. There are no gallstones present. No wall thickening. COMMON BILE DUCT: Normal in caliber measuring 0.3 cm in diameter. RIGHT KIDNEY: No hydronephrosis. No renal calculi or suspicious focal parenchymal lesions. The kidney measures 15.9 cm in maximum dimension. There are numerous mildly complex and simple cysts present, the largest in the lower pole measuring 7.7 x 6.0 x 6.7 cm. LEFT KIDNEY: No hydronephrosis. No renal calculi or suspicious focal parenchymal lesions. The kidney measures 11.0 cm in maximum dimension. There are several simple cysts present, the largest in the lower pole measuring 4.3 x 4.4 x 3.9 cm. SPLEEN: The spleen measures 11.1 cm in maximum dimension. FREE FLUID: None. US/US abdomen complete IMPRESSION: 1. Mild hepatic enlargement and diffuse fatty infiltration. No suspicious lesion or intrahepatic biliary dilatation. 2. Gallbladder demonstrates a small partially calcified 3 mm polyp. It is otherwise normal. 3. There are mildly complex right renal cysts present. There are bilateral simple renal cysts present. No suspicious solid lesion is evident. 4. The pancreas and aorta are largely secured by gas. Electronically signed by: Mark Zayas MD 06/21/2025 11:48 AM EDT
--- OUTSIDE RECORDS SUMMARY | 2025-06-21 12:28 | XMS_ITS | Patient Health Record ---
Author Organization [facility] Address [address] [place] [address] Care Team Providers Care Cash Teller Name Role Phone Sudheer John MD Primary Care Provider UnavailReid Colin [phone] Allergies Allergen (clinical drug ingredient) Drug/Non Drug Allergy documented on EMR Reaction Allergy Type Onset Date Status Tetanus Toxoids Unknown Drug Allergy A ctive Penicillin Unknown Drug Allergy Active Reason For Referral No Information Medications Medication [...] Status Risk Notes Problem Colon cancer screening (948536585) Colon cancer screening (Z12.11) Active confirmed Problem Diverticular disease of colon (016607118) Diverticulosis of large intestine without perforation or abscess without bleeding (K57.30) Active confirmed Problem Chronic constipation (417636994) Chronic constipation (K59.09) Active confirmed Plan Of Treatment Pending Test Test Name Order Date Pathology 03/27/2024 Future Test Test Name Order Date COLONOSCOPY 12/24/2023 Insurance Providers Payer Name Payer Address Payer Phone Subscriber Number Group Number Insured Name Patient Relationship to Insured Coverage Start Date Coverage End Date MED[place]ARE OF [place] [address] [place] [phone] [id number] MARISELA SMITH Self - patient is the insured [employer] [address] [place] [phone] [id number] MARISELA SMITH Self - patient is the insured Medical (General) History Medical History History ICD Code HTN Thyroid cancer BPH Denies [place],DM,CVA,Lung disease,renal dise ase Surgical History Surgery Date(Month/Year) Thyroidectomy for cancer Cataracts
[2025-06-21 13:23] LABS: MANUAL DIFF FLAG NO
[2025-06-21 13:32] LABS: Hematocrit 42.9 % (42.0-52.0); Hemoglobin 13.9 g/dl (14.0-18.0); Imm Gran Abs Auto 0.05 X10*3/uL (0.00-0.03); Imm Gran Pct Auto 0.7 % (0.0-0.4); Lymphocytes Absolute Auto 1.6 X10*3/uL (1.2-4.9); Mean Corpuscular HGB Conc 32.4 g/dl (31.0-36.0); Mean Corpuscular Hemoglobin 28.1 pg (27.0-33.0); Mean Corpuscular Volume 86.7 fL (80.0-98.0); NRBC Abs Auto 0.000 X10*3/uL (0.0-0.012); NRBC Pct Auto 0.0 /100WBC (0.0-0.2); Platelet Count 208 X10*3/uL (160-400); Red Blood Count 4.95 X10*6/uL (4.60-5.80); Reticulocytes Absolute 0.072 X10*6/uL (0.026-0.095); White Blood Count 6.7 X10*3/uL (4.8-10.8)
[2025-06-21 13:46] LABS: PSA,Total (Free>4and<10) 3.25 ng/mL (0.00-4.00)
[2025-06-21 14:02] LABS: Alanine Aminotransferase 10 U/L (0-40); Albumin Level 4.5 g/dL (3.5-5.0); Alkaline Phosphatase 47 U/L (39-117); Anion Gap 13 (12-20); Aspartate Amino Transferase 17 U/L (5-37); Blood Urea Nitrogen 24 mg/dL (9-16); Calcium 8.9 mg/dL (8.4-10.2); Carbon Dioxide 26 mmol/L (22-29); Chloride 104 mmol/L (96-108); Estimated Glomerular Filt Rate 49; Iron 82 mcg/dL (45-160); Percent Iron Saturation 33 % (15-50); Potassium 3.9 mmol/L (3.3-5.1); Sodium 139 mmol/L (135-145); Total Iron Binding Capacity 245 mcg/dL (228-428); Total Protein 6.6 g/dL (6.5-8.0); Unsaturated Iron Binding 163 ug/dL
[2025-06-21 14:08] LABS: Ferritin 296 ng/mL (20-250)
[2025-06-21 14:10] LABS: Folate 9.1 ng/mL (> or = 4.0); Vitamin B12 828 pg/mL (200-900)
== END 2025-06-21 10:51 | disposition home or self-care (01) ==
LOC: HO.HMGCX 10:50
PROVIDERS: Urology; PCP Nurse Practitioner Family; Visit Provider Nurse Practitioner Family
DX: Z12.5 Encounter for screening for malignant neoplasm of prostate (principal); R10.32 Left lower quadrant pain; D64.9 Anemia, unspecified
CPT/HCPCS: 36415; 76700; 80053; 82607; 82728; 82746; 83540; 83615; 84153; 85025; 85045

== ENCOUNTER → 2025-06-21 11:12 | Outpatient (BNV) | payer MEDICARE, OTHER, SELFPAY | PROVIDERS: PCP Nurse Practitioner Family; Visit Provider Radiology Diagnostic Radiology | DX: R10.32 Left lower quadrant pain (principal); K76.0 Fatty (change of) liver, not elsewhere classified | CPT/HCPCS: 76700 ==

== ENCOUNTER 2025-07-03 10:18 | Outpatient (AMB) | payer MEDICARE, OTHER, SELFPAY ==
--- OUTSIDE RECORDS SUMMARY | 2024-03-27 04:40 | XMS_ITS ---
Author Organization [facility] Address [address] [place] [address] Care Team Providers Care Engineer Steam Name Role Phone Sudheer John MD Primary Care Provider Unavailab Reid Hernandez Unavailable [phone] REASON FOR VISIT screening,constipation Problems Problem Type SNOMED Code ICD Code Onset Dates Problem Status W/U Status Risk Notes Problem Diverticular disease of colon (297145497) Diverticulosis of large intestine without perforation or abscess without bleeding (K57.30) Active confirmed Encounters Encounter Location Date Provider Diagnosis [facility] Outpatient [address] [place] [phone] 03/27/2024 Reid Oh Encounter for scre ening [...] * [facility] LDOB:[birth year] (80 yo M)Acc No.[id number]:03/27/2024 COLON WITH MAC Patient: MARISELA ROMERO Provider: Rush Oh MD :1945 A ge:78 Y S ex:Male Date:03/27/2024 Address:[facility] [address] , [id number] Pcp:Sudheer John MD Subjective: * Chief Complaints: [...] 03/27/2024 Generated for Henrietta grimm/Tico/Lelasmitting on: 0 07/03/2025 01:27 PM EDT
--- NOTE | 2025-07-03 10:31 | MHC.OFFVIS ---
Intake Visit Reasons: 4m/PSA/PVR us done complex renal cysts Intake Note: Patient is present for ELEVATED PSA/BPH Urology Medication:TAMSULOSIN, FINASTERIDE Antibiotic Allergy:PENICILLIN Blood Thinner:NONELabs done 06/21/25 PSA 3.25 TODAY'S PVR:59 MLS Finishing Lab Technician Required: No Accompanied by: Self / Same As Patient Allergies Penicillins (PENICILLINS) Allergy (Unknown, Verified 07/03/25 10:32) UNKNOWN tetanus and diphtheria toxoids (TETANUS AND DIPHTHERIA TOXOIDS) Allergy (Unknown, Verified 07/03/25 10:32) UNKNOWN HPI Comments Details: Sharif is a pleasant male. He is a patient of Dr. Claudio. He seen for the following urologic conditions - elevated PSA - lower urinary tract symptoms PSA continued to fall. 3.25. PVR 60 cc. Bladder ultrasound has complete emptying 40 g prostate Elevated PSA with lower urinary tract symptoms Current medications tamsulosin Waking 2-3 times per night, sits to void due to weakness of stream - high AUA score BONG 2+ soft PSA - 11/11 10.0, 07/12 3.25 Uroflow - suboptimal test less than 100 cc output Q max not interpretable reported 2.6 with average flow 1.3 and low PVR PFSH Medical History (Updated 06/21/25 @ 12:31 by ESTELITA Ocampo-DARIUSZ) Complex renal cyst Gallbladder polyp Fatty liver BPH (benign prostatic hyperplasia) HTN (hypertension) Thyroid cancer Surgical History H/O colonoscopy Hx of cataract extraction Hx of thyroidectomy Family History Father No problems noted. Mother No problems noted. Social History Housing: House Patient Tobacco Use Status: Never used Tobacco e-Cigarette/Vaping Use: Never Used service: No Current occupational status: retired Cognitive needs: No Hearing needs: Yes Vision needs: No Review of Systems Const Denies chills and Denies fever(s) Card Reports no additional complaints and Denies syncope Resp Denies cough GI Denies abdominal pain and Denies heartburn Reports as per HPI and Denies change in libido Neuro Denies syncope Psych Denies change in libido Endo Denies change in libido Physical Exam Const General: cooperative, healthy appearing, comfortable and no acute distress Orientation/consciousness: patient oriented x3 HEENT Face and sinus: Yes normal facial exam Mouth: moist mucous membranes Neck Neck: Yes normal visual inspection, Yes full ROM and Yes trachea midline Chest Chest palpation & inspection: normal inspection of the chest Resp Effort & Inspection: normal respiratory effort, able to speak in complete sentences and no respiratory distress GI Inspection: Yes normal to inspection Back/Spine/Pelvis Cervical Spine: normal cervical lordosis Thoracic/Lumbar Spine: thoracic and lumbar spine normal to inspection Skin General skin exam: no rashes or lesions noted Neuro General: patient oriented x3, gait normal, tone normal and moves all extremities Extrem General: Yes normal to inspection and Yes capillary refill normal Office Procedures Post Void Residual Post Residual Void Post Void Residual (PVR): 59 [id number] Void Residual by ultrasound Results AMB Urinalysis, Automated UA Leukoctes 0 José Miguel/uL Last Edit by ALLISON James on 07/03/25 16:13 UA Nitrite Negative Last Edit by ALLISON James on 07/03/25 16:13 UA Urobilinogen 0.2 mg/dL Last Edit by ALLISON James on 07/03/25 16:13 UA Protein 0 mg/dL Last Edit by ALLISON James on 07/03/25 16:13 UA pH 6.0 Last Edit by ALLISON James on 07/03/25 16:13 UA Blood 0 Renny/uL Last Edit by ALLISON James on 07/03/25 16:13 UA Specific [place] 1.010 Last Edit by ALLISON James on 07/03/25 16:13 UA Ketone Last Edit by ALLISON James on 07/03/25 16:13 UA Bilirubin 0 mg/dL Last Edit by ALLISON James on 07/03/25 16:13 UA Glucose 0 mg/dL Last Edit by ALLISON James on 07/03/25 16:13 Results Reviewed Results Reviewed: Laboratory Last Values Urine pH (Auto) 6.0 07/03/25 16:12 Specific [place] (Auto) 1.010 07/03/25 16:12 Urine Protein (Auto) 0 mg/dL 07/03/25 16:12 Glucose (UA)(Auto) 0 mg/dL 07/03/25 16:12 Urine Blood (Auto) 0 Renny/uL 07/03/25 16:12 Urine Nitrite (Auto) Negative 07/03/25 16:12 Urine Bilirubin (Auto) 0 mg/dL 07/03/25 16:12 Urine Urobilinogen (Auto) 0.2 mg/dL 07/03/25 16:12 Leukocyte Esterase (Auto) 0 José Miguel/uL 07/03/25 16:12 Assessment & Plan Assessment & Plan (1) Elevated PSA: Code(s): R97.20 - Elevated prostate specific antigen [PSA] Category: Medical (2) BPH (benign prostatic hyperplasia): Code(s): N40.0 - Benign prostatic hyperplasia without lower urinary tract symptoms Category: Medical Plan Six-month follow-up PSA Orders: Orders AMB Post Void Residual by ultrasound 07/03/25 N40.0 - Benign prostatic hyperplasia without lower urinary tract symptoms AMB Urinalysis Automated 07/03/25 Z13.9 - Encounter for screening, unspecified Prostate Specific Antigen 6 Months R97.20 - Elevated prostate specific antigen [PSA] Medications: Refilled finasteride 5 mg PO DAILY 90 tabs 1RF 90 days N13.8 - Other obstructive and reflux uropathy, N40.0 - Benign prostatic hyperplasia without lower urinary tract symptoms, N40.1 - Benign prostatic hyperplasia with lower urinary tract symptoms, R33.9 - Retention of urine, unspecified Patient Instructions: This note is constructed using voice recognition software. While every effort has been made to ensure accuracy botanical technical officer errors may have been included. Imaging studies, laboratory and physical exam results were discussed and reviewed in detail. No major barriers to patient understanding were identified. An opportunity to ask questions regarding the treatment plan was provided. All questions were answered. The patient expressed understanding and agreement with the above treatment plan. The patient is aware they should contact our office by phone for worsening of their current condition or the appearance of new urologic symptoms. Compliance is encouraged with any medications and followup testing that is ordered. It is a privilege to participate in the urologic care of your patient. If you have any questions or concerns regarding treatment for the above conditions, or other urologic issues, please do not hesitate to contact me. The office telephone contact is [phone]. Sincerely, Dr Rogers White MD, [facility] - Urology Compassionate Specialist Care for the Genitourinary System Coding Level of Care Code Est Pt Level 3 (29110) Diagnoses Elevated PSA R97.20 BPH (benign prostatic hyperplasia) N40.0 CPT Codes Post Residual Void - PVR CPT Code: 62275-Sclj Void Residual by ultrasound ([id number])
--- OUTSIDE RECORDS SUMMARY | 2025-07-03 13:27 | XMS_ITS | Patient Health Record ---
Author Organization [facility] Address [address] [place] [address] Care Team Providers Care Warehouse Delivery Manager Name Role Phone Sudheer John MD Primary Care Provider UnavailReid Colin [phone] Allergies Allergen (clinical drug ingredient) Drug/Non Drug [...] Status Risk Notes Problem Colon cancer screening (077816427) Colon cancer screening (Z12.11) Active confirmed Problem Diverticular disease of colon (793095412) Diverticulosis of large intestine without perforation or abscess without bleeding (K57.30) Active confirmed Problem Chronic constipation (674958980) Chronic constipation (K59.09) Active confirmed Plan Of Treatment Pending Test Test Name Order Date Pathology 03/27/2024 Future Test Test Name Order Date COLONOSCOPY 12/24/2023 Insurance Providers Payer Name Payer Address Payer Phone Subscriber Number Group Number Insured Name Patient Relationship to Insured Coverage Start Date Coverage End Date MEDICARE OF [place] [address] [place] [address] [phone] [id number] MARISELA SMITH Self - patient is the insured [employer] [address] [place] [phone] [id number] MARISELA SMITH Self - patient is the insured Medical (General) History Medical History History ICD Code HTN Thyroid cancer BPH Denies MS,DM,CVA,Lung disease,renal dise ase Surgical History Surgery Date(Month/Year) Thyroidectomy for cancer Cataracts
== END 2025-07-03 11:16 | disposition home or self-care (01) ==
LOC: HO.HUSH 10:19
PROVIDERS: PCP Nurse Practitioner Family; Visit Provider Urology
DX: Z13.9 Encounter for screening, unspecified (principal)

== ENCOUNTER → 2025-07-03 10:18 | Outpatient (BNVA) | payer MEDICARE, OTHER, SELFPAY | PROVIDERS: PCP Nurse Practitioner Family; Visit Provider Urology | DX: R97.20 Elevated prostate specific antigen [PSA] (principal); N40.0 Benign prostatic hyperplasia without lower urinary tract symptoms; Z13.9 Encounter for screening, unspecified | CPT/HCPCS: 51798; 81003; 99212 ==

== ENCOUNTER 2025-08-25 09:52 | Outpatient (REF) | payer MEDICARE, OTHER, SELFPAY ==
--- OUTSIDE RECORDS SUMMARY | 2024-03-27 03:40 | XMS_ITS ---
Author Organization [facility] Address [address] [place] [address] Care Team Providers Care Coding Tech Name Role Phone Sudheer John MD Primary Care Provider Unavailab Reid Hernandez Unavailable [phone] REASON FOR VISIT screening,constipation Problems Problem Type SNOMED Code ICD Code Onset Dates Problem Status W/U Status Risk Notes Problem Diverticular disease of colon (729936241) Diverticulosis of large intestine without perforation or abscess without bleeding (K57.30) Active confirmed Encounters Encounter Location Date Provider Diagnosis [facility] Outpatient [address] [place] [phone] 03/27/2024 Reid Oh Encounter for scre ening colonoscopy Z12.11 ; Colon polyps K63.5 ; Diverticulosis of large intestine without perforation or abscess without bleeding K57.30 and Other hemorrhoids K64.8 Assessments Encounter Date Diagnosis (ICD Code) Assessment Notes Treatment Notes Treatment Clinical Notes Section Notes 03/27/2024 Encounter for screening colonoscopy (ICD-10 - Z12.11) 03/27/2024 Colon polyps (ICD-10 - K63.5) 03/27/2024 Diverticulosis of large intestine without perforation or abscess without bleeding (ICD-10 - K57.30) 03/27/2024 Other hemorrhoids (ICD-10 - K64.8) Plan Of Treatment No Information Progress Notes * [facility] LDOB:[birth year] (80 yo M)Acc No.[id number]:03/27/2024 COLON WITH MAC Patient: MARISELA ROMERO Provider: Rush Oh MD :1945 A ge:78 Y S ex:Male Date:03/27/2024 Address:[facility] [address] , [id number] Pcp:Sudheer John MD Subjective: * Chief Complaints: * 1 . Screening,constipation. * Medical History: Objective: * Vitals: Assessment: * Assessment: 1. E ncounter for screening colonoscopy - Z12.11 (Primary) 2 . C olon polyps - K63.5 3 . D iverticulosis of large intestine without perforation or abscess without bleeding - K57.30 4 . O ther hemorrhoids - K64.8 Plan: * Treatment: * Procedure Codes: 4 5380 COLONOSCOPY AND BIOPSY, Modifiers: PT , 0529F INTRVL 3+YRS PTS CLNSCP DOCD, 0528F RCMND FLW-UP 10 YRS DOCD, Modifiers: 1P * * The named appointment provid er may or may not be the originator of this progress note, and it is not deemed complete until electronically signed by the appointment provider. Sign off status: Pending * Provider: Rush Oh MD Date: 0 03/27/2024 Generated for Henrietta grimm/Tico/Lelasmitting on: 1 10/25/2024 09:55 AM EST
--- NOTE | ~2025-08-25 | CT_ITS ---
CLINICAL HISTORY: R10.32 - Left lower quadrant pain CT abdomen and pelvis without contrast Comparison: CT - CT PELVIS WITH IV CONTRAST - 01/29/2021 12:16 PM EDT Findings: Incompletely evaluated left lateral pelvic lower chest sidewall fatty lesion (likely lipoma; series 3 images 1-9) could be further evaluated with ultrasound. Myyr-tl-vwevwiek pancreatic atrophy. Contracted gallbladder. Bilateral variably sized simple renal cysts and too small to characterize left renal hypodensities. No hydronephrosis or urinary tract stone. Questionable subtle 15 mm mildly hypodense pancreatic uncinate process lesion on series 3, image 40 could be further evaluated with pancreatic protocol CT or MRI. No bowel obstruction, pneumoperitoneum, or pneumatosis. Mild colonic diverticulosis without diverticulitis. Normal appendix. Atherosclerotic calcifications. Small fat containing uncomplicated bilateral inguinal hernias. Borderline enlarged prostate measuring up to 5 cm in width and mildly projecting into the urinary bladder base. Rest of the abdominopelvic viscera are unremarkable. No acute fracture. Spinal degenerative changes. IMPRESSION: 1. Borderline enlarged prostate measuring up to 5 cm in width and mildly projecting into the urinary bladder base. 2. Questionable subtle 15 mm mildly hypodense uncinate process lesion on series 3, image 40 could be further evaluated with pancreatic protocol CT or MRI. 3. Incompletely evaluated left lateral pelvic lower chest sidewall fatty lesion (likely lipoma; series 3 images 1-9) could be further evaluated with ultrasound. This document has been electronically signed by: Brianna Zuluaga MD on 08/28/2025 11:59:53
--- OUTSIDE RECORDS SUMMARY | 2025-08-25 09:55 | XMS_ITS | Patient Health Record ---
Author Organization [facility] Address [address] [place] [address] Care Team Providers Care Hide Trimmer Name Role Phone Sudheer John MD Primary Care Provider UnavailReid Colin [phone] Allergies Allergen (clinical drug ingredient) Drug/Non Drug Allergy documented on EMR Reaction Allergy Type Onset Date Status Tetanus Toxoids Unknown Drug Allergy A ctive Penicillin Unknown Drug Allergy Active Reason For Referral No Information Medications Medication SIG (Take, Route, Frequency, Duration) Notes Start Date End Date Status Tamsulosin HCl 0.4 MG TAKE 1 CAPSULE BY MOUTH EVERY DAY AT BEDTIME Oral; Duration: 90 Active Lisinopril-hydroCHLOROthiazi de 20-25 MG TAKE 1 TABLET BY MOUTH EVERY DAY Oral; Duration: 90 Active Levothyroxine Sodium 125 MCG TAKE 1 TABL ET BY MOUTH EVERY DAY Oral; Duration: 90 Active Immunizations Vaccine Route Administration Date [...] Status Risk Notes Problem Colon cancer screening (353924632) Colon cancer screening (Z12.11) Active confirmed Problem Diverticular disease of colon (315707689) Diverticulosis of large intestine without perforation or abscess without bleeding (K57.30) Active confirmed Problem Chronic constipation (274064087) Chronic constipation (K59.09) Active confirmed Plan Of Treatment Pending Test Test Name Order Date Pathology 03/27/2024 Future Test Test Name Order Date COLONOSCOPY 12/24/2023 Insurance Providers Payer Name Payer Address Payer Phone Subscriber Number Group Number Insured Name Patient Relationship to Insured Coverage Start Date Coverage End Date MEDICARE OF [place] [address] [place] [address] [phone] [id number] MARISELA SMITH Self - patient is the insured [employer] [address] [place] [phone] [id number] MARISELA SMITH Self - patient is the insured Medical (General) History Medical History History ICD Code HTN Thyroid cancer BPH Denies CO,DM,CVA,Lung disease,renal dise ase Surgical History Surgery Date(Month/Year) Thyroidectomy for cancer Cataracts
--- OUTSIDE RECORDS SUMMARY | 2025-08-25 09:56 | XMS_ITS | Data Portability ---
Author Organization [place] - [facility], Allergy Address [address] [address] Assessment Encounter Date Assessment Date Assessment LastModified [...] reprogramming hearing aids or updating new technology. 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; Note: Date Diagnosed : 01/17/2015 12:21 PM (225.1) Not Available [facility] 4 02:51:40 Subjectiv e tinnitus 48012130 Active 2014 Subjectiv e tinnitus; Note: Date Diagnosed : 01/17/2015 12:21 PM (388.31) Not Available [facility] 4 02:51:43 Tinnitus of right ear 72444877345 08 Active 2016 Tinnitus, right ear; Note: Date Diagnosed : 02/04/2017 9:48 AM (H93.11) Not Available [facility] 4 02:51:37 Sensorine ural hearing loss of bilateral ears 114835522 Active 2016 Sensorine ural hearing loss, bilateral ; Note: Date Diagnosed : 02/04/2017 9:48 AM (H90.3) Not Available [facility] 4 02:51:43 Benign neoplasm of meninges 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 Procedures Surgical History Date Name Laterality Status Provider Name and Address Organization Details Recorded Time 5 Cerumen removal without microscope bilat completed Marzena Traore [place] - [facility] 02/01/2025 16:02:49 Imaging Results None recorded. Procedure Notes None recorded. Medical Equipment None Reported. Medications Name Sig Start Date Stop Date Status Note LastModified by Organization Details LastModified Time clonazepa m 1 mg tablet 02/04 completed Medicati on ID: [id number] Pr escribed By Name: Camille Jaimes M.D. Bra nd Name: clonazep am Send Method: E-Prescr ibed Sub s Allowed: subs OK Speci al Instruct ion: Take 1 tablet 1 hour prior to MRI, may take second one if needed M edicatio nGeneric Name: clonazep am Not Available Not Available Not Available lorazepam 0.5 mg tablet 2020 active Medicati on ID: [id number] P andrearibe d By Name: YAIMA Chadwick nd Name: [...] mg tablet 02/04 completed Medicati on ID: [id number] Du ration Value: 10 Reason: () Brand [...] mcg tablet 12/10 completed Medicati on ID: [id number] D uration Value: 90 Brand Name: Unithroi [...] Diagnosis SNOMED-CT Code Diagnosis ICD10 Code Diagnosis IMO Codes Diagnosis Note [id number] Kelechi MORENO [place] [address] [facility],[place] [facility] [address] 02/01/2025 14:54:46 02/05/2025 11:40:01 Sensorineural hearing loss of bilateral ears 252205684 H90.3 [id number] MARZENA TRAORE PA-C [facility] [address] [place] [address] 02/01/2025 15:40:51 02/01/2025 15:47:36 Impacted cerumen of bilateral ears 2076513950 245240 H61.23 Health Concerns Section Related Observation LastModified by Organization Detai ls LastModified Time None Recorded Concern Status LastModified by Organization Details LastModified Time None Recorded Advance Directives Directive None Recorded Payers Insurance Date Sequence Insurance Name Policy Number Policy Owen Covered Member ID Owen Member ID Guarantor Name 02/07/2025 2 [facility] (MEDICARE SUPPLEMENT) Sharif [address] [place] [id number] Sharif Helms 02/01/2025 1 [place]: [facility] Sharif [address] Castrejon[place]ie [id number] Sharif [place] Notes Date Note Type Note Provider Name and Address Organization Details Recorded Time 02/01/2025 text/html Hearing Technolo gy HistoryReported by PatientReported status of current hearing technologyFor sound quality and programming settings, patient reportsthat they are satisfied with current settings and technology. For daily use, patient reportsconsistent use of technology. Patient returned for their annual fitting of amplification to discuss their ongoing communication needs and progress with amplification. They reported that the devices are not working properly (right weak) The devices are out of warranty at this time. Kelechi MORENO [address] [facility],[address], [address], [facility] - [facility] 02/06/2025 13:37:38 02/01/2025 text/html ROS as noted in the HPI 79 year old male presents for cerumen removal. Impaction identified by audiology department. Patient denies otalgia and otorrhea. Hearing aids fit well and provide good benefit CAMILLE JAIMES MD [address] [facility],[place] [address], [place], [address], [facility] - [facility] 02/01/2025 17:08:01
== END 2025-08-25 09:53 | disposition home or self-care (01) ==
LOC: HO.CT 09:52
PROVIDERS: PCP Nurse Practitioner Family; Visit Provider Nurse Practitioner Family
DX: R10.32 Left lower quadrant pain (principal)
CPT/HCPCS: 74176

== ENCOUNTER 2025-09-05 14:48 | Outpatient (AMB) | payer MEDICARE, OTHER, SELFPAY ==
--- OUTSIDE RECORDS SUMMARY | 2024-03-27 03:40 | XMS_ITS ---
Author Organization [facility] Address [address] [place] [address] Care Team Providers Care Eap Specialist Name Role Phone uSdheer John MD Primary Care Provider Unavailab Reid Hernandez Unavailable [phone] REASON FOR VISIT screening,constipation Problems Problem Type SNOMED Code ICD Code Onset Dates Problem Status W/U Status Risk Notes Problem Diverticular disease of colon (807549569) Diverticulosis of large intestine without perforation or abscess without bleeding (K57.30) Active confirmed Encounters Encounter Location Date Provider Diagnosis [facility] Outpatient [address] [place] [phone] 03/27/2024 Reid Oh Encounter for scre ening [...] * [facility] LDOB:[birth year] (80 yo M)Acc No.[id number]:03/27/2024 COLON WITH MAC Patient: MARISELA ROMERO Provider: Rush Oh MD :1945 A ge:78 Y S ex:Male Date:03/27/2024 Address:[facility] [address] , [id number] Pcp:Sudheer John MD Subjective: * Chief Complaints: * S creening,constipation Assessment: * Assessment: 1. E ncounter for screening colonoscopy - Z12.11 (Primary) 2 . C olon polyps - K63.5 3 . D iverticulosis of large intestine without perforation or abscess without bleeding - K57.30 4 . O ther hemorrhoids - K64.8 Plan: * Procedure Codes: 4 5380 COLONOSCOPY AND BIOPSY, Modifiers: PT 0529F INTRVL 3+YRS PTS CLNSCP [id number] RCMND FLW-UP 10 YRS DOCD, Modifiers: 1P Billing Information: * Procedure Codes: 32971 COLONOSCOPY AND BIOPSY. Modifiers: PT 0529F INTRVL 3+YRS PTS CLNSCP DOCD. 0528F RCMND FLW-UP 10 YRS DOCD. Modifiers: 1P * The named appointment provid er may or may not be the originator of this progress note, and it is not deemed complete until electronically signed by the appointment provider. Sign off status: Pending * Provider: Rush Oh MD Date: 0 03/27/2024 Generated for Henrietta grimm/Tico/Pepper on: 11/06/2024 03:20 AM EST
[2025-09-05 15:08] VITALS: BP 116/48; PULSE 77; RESP 16; TEMP 37.3; O2SAT 99; BMI 36.0
--- NOTE | 2025-09-05 15:08 | A.OFFPC_ITS ---
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 Accompanied by: Self / Same As Patient Allergies Penicillins (PENICILLINS) Allergy (Unknown, Verified 09/05/25 15:11) UNKNOWN tetanus and diphtheria toxoids (TETANUS AND DIPHTHERIA TOXOIDS) Allergy (Unknown, Verified 09/05/25 15:11) UNKNOWN Tobacco use date assessed: 09/05/25 Fall risk assessment: No Falls in past year Last assessed Fall Risk: 09/05/25 Dental Screening Dental Screen Date: 09/05/25 Did you have a dental visit in the last 12 months?: No Did you have a dental problem in the last 6 months where you did not have access to dental care?: No Was dental information given to patient?: Patient declined HPI Discuss test results HPI Details Chief Complaint The patient is here for a follow-up to discuss recent CT scan results for ongoing abdominal discomfort. History of Present Illness The patient is an 80-year-old male presenting for follow-up to review the results of a recent CT scan of the abdomen and pelvis. The scan was ordered due to ongoing left lower quadrant discomfort that radiates laterally and posteriorly. The patient denies any associated weight loss, chest pain, or epigastric abdominal pain. His medical history is significant for a borderline enlarged prostate, for which he is followed by urology. He has never smoked. Social History - Tobacco Use: Patient reports he has ne isaura smoked. Health Maintenance Review of Systems - Constitutional: Denies weight loss. - Cardiovascular: Denies chest pain. - Gastrointestinal: Reports left lower q uadrant discomfort radiating laterally and posteriorly. Denies epigastric abdominal pain. Physical Exam General: Cooperative, healthy appearing, comfortable, no acute distress and well developed Orientation: Patient oriented x3 Limitations: No limitations Head: Normal to inspection Ears: Hearing grossly normal bilaterally Nose: Normal external nose present Face and sinus: Normal facial exam Eyes: Appearance normal, both eyes and all related structures Neck: Normal visual inspection and Yes full ROM Respiratory: Normal respiratory effort and able to speak in complete sentences. Clear to auscultation bilaterally Cardiovascular: Regular rate and rhythm. Normal S1 and S2 GI: Normal to inspection. Soft to palpation and nontender Skin: No rashes or lesions noted Neuro: Patient oriented x3 Extremities: Normal to inspection Results - CT Abdomen/Pelvis: Findings included a possible left lateral pelvic/lower chest sidewall fatty lesion, likely a lipoma; a questionable hypodense lesion in the pancreas; and a borderline enlarged prostate. Plan 1. Pancreatic Lesion A CT scan revealed a questionable hypodense lesion on the pancreas. To further evaluate this finding, an MRI of the abdomen with and without contrast has been ordered and is scheduled for next week. 2. Left Lower Quadrant Abdominal Discomf ort The patient reports ongoing left lower quadrant discomfort radiating laterally and posteriorly. A CT scan of the abdomen and pelvis did not show a definitive cause for his symptoms, with results appearing largely negative. 3. Benign Prostatic Hyperplasia The CT scan showed a borderline enlarged prostate, a finding the patient is aware of. He is already under the care of a urologist for this condition. 4. Lipoma Of Chest Wall An incidental finding on the CT scan was a possible left lateral pelvic/lower chest sidewall fatty lesion, likely a lipoma. No further action is planned for this finding at this time. ? if could be causing the discomfort Discussion Notes I reviewed the results of the recent CT scan of the abdomen and pelvis with the patient. I explained that while the scan did not show a clear reason for his left-sided discomfort, it did reveal a questionable hypodense lesion on his pancreas. To investigate this further, I have ordered an MRI of his abdomen with and without contrast, which is scheduled for next week. I informed him that we would await the results of the MRI for further clarification. Patient Instructions - Please proceed with the MRI of your ab chow with and without contrast, which is scheduled for next week. - We will follow up to discuss the resul ts of the MRI once they are available. - Continue to see your urology specialis t for your prostate condition as planned. [facility] Medical History (Updated 08/28/25 @ 12:08 by NIXON Ocampo) Complex renal cyst Gallbladder polyp Fatty liver BPH (benign prostatic hyperplasia) HTN (hypertension) Thyroid cancer Surgical History H/O colonoscopy Hx of cataract extraction Hx of thyroidectomy Family History Father No problems noted. Mother No problems noted. Social History Housing: House Patient Tobacco Use Status: Never used Tobacco e-Cigarette/Vaping Use: Never Used service: No Current occupational status: retired Cognitive needs: No Hearing needs: Yes Vision needs: No Questionnaire PHQ-9 Over the last 2 weeks, how often have you been bothered by any of the following problems? 1. Little interest or pleasure in doing things: not at all 2. Feeling down, depressed, or hopeless: not at all 3. Trouble falling or staying asleep, or sleeping too much: not at all 4. Feeling tired or having little energy: not at all 5. Poor appetite or overeating: not at all 6. Feeling bad about yourself - or that you are a failure or have let yourself or your family down: not at all 7. Trouble concentrating on things, such as reading the newspaper or watching television: not at all 8. Moving or speaking so slowly that other people could have noticed. Or the opposite - being so fidgety or restless that you have been moving around a lot more than usual: not at all 9. Thoughts that you would be better off or of hurting yourself in some way: not at all Total score: 0 Depression Screening Interpretation: Negative Depression Screening Done: Yes 68989 - PHQ-9 Billing: Yes Source: Developed by Drs. Reid Saeed, Taylor Marquis, Marek Pagan and colleagues, with an educational nidhi from [employer]. Thrive Questionnaire Date Thrive assessed: 10/23/24 I am a: Patient What is your living situation today?: I have a steady place to live Within the past 12 months, did the food you bought not last and you didn't have the money to get more?: Never true Within the past 12 months, did you worry whether your food would run out before you got money to buy more?: Never true Do you have trouble paying for medicines?: No Do you have trouble getting transportation to medical appointments?: No Do you have trouble paying your heating and electricity bill?: No Do you have trouble taking care of your child, family member or friend?: No Do you have trouble with day-to-day activities such as bathing, preparing meals, shopping, managing finances, etc.?: No Are you currently unemployed and looking for a job?: No Are you interested in more education?: No Please select the resources that you would like help with: None Currently or been in a relationship where the following occur: No concerns reported THRIVE Score: 0 WYATT-7 AMB Questionnaire WYATT-7 Date WYATT - 7 assessed: 10/23/24 Source: Developed by Drs. Reid Saeed, Taylor Marquis, Marek Pagan and colleagues, with an educational nidhi from [employer]. Physical exam (Primary Care) Vital Signs: Last Vital Signs Temp 99.1 F 09/05/25 15:08 Pulse 77 09/05/25 15:08 Resp 16 09/05/25 15:08 BP 116/48 L 09/05/25 15:08 Pulse Ox 99 09/05/25 15:08 BMI result Body Mass Index 36.0 Tobacco/Smoking Status: Tobacco use Status Tobacco use date assessed 09/05/25 09/05/25 15:19 Patient Tobacco Use Status Never used Tobacco 09/05/25 15:08 e-Cigarette/Vaping Use Never Used 09/05/25 15:08 PHQ-9: PHQ-9 Score PHQ-9: Total score 0 09/05/25 15:19 Depression Screening Interpretation: Negative Thrive Assessment: Date of Thrive Assessment Date Thrive assessed 10/23/24 09/05/25 15:08 Currently or been in a relationship where the following occur: No concerns reported Coding Level of Care Code Est Pt Level 3 (83007) Diagnoses Pancreatic lesion K86.9 LLQ pain R10.32 BPH (benign prostatic hyperplasia) N40.0 Additional Codes PHQ-9 - 74413 - PHQ-9 Billing: Yes ([id number]) Assessment & Plan Assessment & Plan (1) Pancreatic lesion: Code(s): K86.9 - Disease of pancreas, unspecified Category: Medical (2) LLQ pain: Code(s): R10.32 - Left lower quadrant pain Category: Medical (3) BPH (benign prostatic hyperplasia): Code(s): N40.0 - Benign prostatic hyperplasia without lower urinary tract symptoms Category: Medical Plan .
--- OUTSIDE RECORDS SUMMARY | 2025-09-06 03:21 | XMS_ITS | Patient Health Record ---
Author Organization [facility] Address [address] [place] [address] Care Team Providers Care Technical Staff Engineer Name Role Phone Sudheer John MD Primary Care Provider UnavailReid Colin [phone] Allergies Allergen (clinical drug ingredient) Drug/Non Drug Allergy documented on EMR Reaction Allergy Type Onset Date Status Penicillin Unknown Drug Allergy Active Tetanus Toxoids Unknown Drug Allergy A ctive Reason For Referral No Information Medications Medication SIG (Take, Route, Frequency, Duration) Notes Start Date End Date Status Tamsulosin HCl 0.4 MG Capsule TAKE 1 CAPSULE BY MOUTH EVERY DAY AT BEDTIME Oral; Duration: 90 Active Lisinopril-hydroCHLOROthiazi de 20-25 MG Tablet TAKE 1 TABLET BY MOUTH EVERY DAY Oral; Duration: 90 Active Levothyroxine Sodium 125 MCG Tablet TAKE 1 TABLET BY MOUTH EVERY DAY Oral; Duration: 90 Active Immunizations Vaccine Route Administration Date Status Comme nts Influenza Unknown 12/24/2023 Refused Social History Tobacco Use: Social History Observation Description Date Details (start date - stop date) Never Smoker NA - NA Social History Drugs/Alcohol: Social Info Question Answer Notes Alcohol Screen Did you have a drink containing alcohol in the past year? Yes How often did you have a drink containing alcohol in the past year? 2 to 3 times a week (3 points) How many drinks did you have on a typical day when you were drinking in the past year? 1 or 2 drinks (0 point) How often did you have 6 or more drinks on one occasion in the past year? Never (0 point) Points 3 Interpretation Negative Tobacco Use: Social Info Question Answer Notes Tobacco Use/Smoking Patient is a nonsmoker Additional Details Category Social Info Options Details Miscellaneous: Marital status: Occupation: retired Section Notes: Nonsmoker; no sig alcohol Problems Problem Type SNOMED Code ICD Code Onset Dates Problem Status W/U Status Risk Notes Problem Colon cancer screening (084215868) Colon cancer screening (Z12.11) Active confirmed Problem Diverticular disease of colon (930534632) Diverticulosis of large intestine without perforation or abscess without bleeding (K57.30) Active confirmed Problem Chronic constipation (361827962) Chronic constipation (K59.09) Active confirmed Plan Of Treatment Pending Test Test Name Order Date Pathology 03/27/2024 Future Test Test Name Order Date COLONOSCOPY 12/24/2023 Insurance Providers Payer Name Payer Address Payer Phone Subscriber Number Group Number Insured Name Patient Relationship to Insured Coverage Start Date Coverage End Date MEDICARE OF [place] [address] [place] [id number] MARISELA SMITH Self - patient is the insured [facility] [address] [place] [phone] [id number] MARISELA SMITH Self - patient is the insured Medical (General) History Medical History History ICD Code HTN Thyroid cancer BPH Denies AK,DM,CVA,Lung disease,renal dise ase Surgical History Surgery Date(Month/Year) Thyroidectomy for cancer Cataracts
--- OUTSIDE RECORDS SUMMARY | 2025-09-06 03:21 | XMS_ITS | Data Portability ---
Author Organization [place] - [facility], Allergy Address [address] [address] Assessment Encounter Date Assessment Date Assessment LastModified [...] reprogramming hearing aids or updating new technology. 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; Note: Date Diagnosed : 01/17/2015 12:21 PM (225.1) Not Available [facility] 4 02:51:40 Subjectiv e tinnitus 20050004 Active 2014 Subjectiv e tinnitus; Note: Date Diagnosed : 01/17/2015 12:21 PM (388.31) Not Available [facility] 4 02:51:43 Tinnitus of right ear 67851665598 08 Active 2016 Tinnitus, right ear; Note: Date Diagnosed : 02/04/2017 9:48 AM (H93.11) Not Available [facility] 4 02:51:37 Sensorine ural hearing loss of bilateral ears 502237804 Active 2016 Sensorine ural hearing loss, bilateral ; Note: Date Diagnosed : 02/04/2017 9:48 AM (H90.3) Not Available [facility] 4 02:51:43 Benign neoplasm of meninges 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 Procedures Surgical History Date Name Laterality Status Provider Name and Address Organization Details Recorded Time 5 Cerumen removal without microscope bilat completed Marzena Traore [place] - [facility] 02/01/2025 16:02:49 Imaging Results None recorded. Procedure Notes None recorded. Medical Equipment None Reported. Medications Name Sig Start Date Stop Date Status Note LastModified by Organization Details LastModified Time clonazepa m 1 mg tablet 02/04 completed Medicati on ID: [id number] Pr escribed By Name: Camille Jaimes M.D. Bra nd Name: clonazep am Send Method: E-Prescr ibed Sub s Allowed: subs OK Speci al Instruct ion: Take 1 tablet 1 hour prior to MRI, may take second one if needed M edicatio nGeneric Name: clonazep am Not Available Not Available Not Available lorazepam 0.5 mg tablet 2020 active Medicati on ID: [id number] P andrearibe d By Name: YAIMA Chadwick [...] mg tablet 02/04 completed Medicati on ID: [id number] Du ration Value: 10 Reason: () Brand [...] mcg tablet 12/10 completed Medicati on ID: [id number] D uration Value: 90 Brand Name: Unithroi [...] ICD10 Code Diagnosis IMO Codes Diagnosis Note [id number] Kelechi MORENO [place] [facility] [address] [facility] [address] 02/01/2025 14:54:46 02/05/2025 11:40:01 Sensorineural hearing loss of bilateral ears 159428305 H90.3 [id number] MARZENA TRAORE PA-C [facility] [address] [place] [address] 02/01/2025 15:40:51 02/01/2025 15:47:36 Impacted cerumen of bilateral ears [id number] 991270 H61.23 Health Concerns Section Related Observation LastModified by Organization Detai ls LastModified Time None Recorded Concern Status LastModified by Organization Details LastModified Time None Recorded Advance Directives Directive None Recorded Payers Insurance Date Sequence Insurance Name Policy Number Policy Owen Covered Member ID Owen Member ID Guarantor Name 02/07/2025 2 [facility] (MEDICARE SUPPLEMENT) Sharif [address] [place] [id number] Sharif Helms 02/01/2025 1 [place] [facility] Sharif [address] [place] [id number] 0 Sharif [place] Notes Date Note Type [...] warranty at this time. Kelechi MORENO [address] [facility],[address], [address], [facility] - [facility] 02/06/2025 13:37:38 02/01/2025 text/html ROS as noted in the HPI 79 year old male presents for cerumen removal. Impaction identified by audiology department. Patient denies otalgia and otorrhea. Hearing aids fit well and provide good benefit CAMILLE JAIMES MD [address] [facility],[place] [address], [place], [address], [facility] - [facility] 02/01/2025 17:08:01
== END 2025-09-05 16:10 | disposition home or self-care (01) ==
LOC: HO.HMCC 14:49
PROVIDERS: PCP Nurse Practitioner Family; Visit Provider Nurse Practitioner Family
DX: K86.9 Disease of pancreas, unspecified (principal); R10.32 Left lower quadrant pain; N40.0 Benign prostatic hyperplasia without lower urinary tract symptoms

== ENCOUNTER → 2025-09-05 14:48 | Outpatient (BNVA) | payer MEDICARE, OTHER, SELFPAY | PROVIDERS: PCP Nurse Practitioner Family; Visit Provider Nurse Practitioner Family | DX: Z71.2 Person consulting for explanation of examination or test findings (principal); R10.32 Left lower quadrant pain; K86.9 Disease of pancreas, unspecified; N40.0 Benign prostatic hyperplasia without lower urinary tract symptoms; Z13.31 Encounter for screening for depression | CPT/HCPCS: 96127; 99212 ==